=== PATIENT | male | born 1955 | race Caucasian/White ===

== ENCOUNTER 2020-04-16 05:50 | Outpatient (RCR) | payer BC ==
[~2020-04-16] VITALS: Ht 180.3 cm; Wt 89.3 kg
[~2020-04-16 05:50] MED LIST: ATOR20TA66 PO; CETI10TA21 PO; HYDR25TA4 PO; HYOS-19 SL; HYOS0.3710 PO; LOSA100T57 PO; NAPR-915 PO; NFNEB10T PO
== END 2020-04-16 15:08 | disposition home or self-care (01) ==
LOC: PREOP 05:50
PROVIDERS: ATTEND Internal Medicine
DX: Z01.818 Encounter for other preprocedural examination (principal); Z11.59 Encounter for screening for other viral diseases
CPT/HCPCS: 87635

== ENCOUNTER 2020-04-20 09:29 | Day surgery (SDC) | payer BC ==
--- NOTE | 2020-04-16 06:28 | HISTORY AND PHYSICAL ---
DATE OF SERVICE: COLONOSCOPY HISTORY AND PHYSICAL HISTORY OF PRESENT ILLNESS: The patient is a 65-year-old white male referred by Dr. Torres for screening colonoscopy. He does report a history of longstanding irritable bowel syndrome, diarrhea predominant. Six weeks ago, he did notice exacerbation of diarrhea with urgency. Previous to this, his usual habit was 3 to 4 stools a day, mostly in the morning, occasional bowel movement after lunch that were soft but formed. Since that time he is going 7 to 8 times a day and it has been very loose with more fluid. He denies any antibiotic exposure or change in medication. He was given a trial of Questran, but he does not feel that there has been any improvement over the past couple of weeks, taking it twice a day. He has no past history of constipation. He denies night sweats, chills or fever. There has been no travel history and he came with labs including negative Clostridium difficile, enteric pathogens as well as no evidence for ova or parasites. He had a normal CBC and chemistry panel was unremarkable except for slightly low globulin level at 1.8, lower limits of normal being 1.9. PAST MEDICAL HISTORY: One screening colonoscopy 11 years ago, reportedly showed diverticular disease per Dr. Sandoval but no evidence for neoplasia. No other abnormalities were noted. He has a history of hypertension and osteoarthritis, predominantly of the knees. He has history of reflux with no known history for Zaragoza's esophagus and denies any problems with dysphagia with no reflux as long as he takes 20 mg of omeprazole. He also has a history of seasonal allergies. PAST SURGICAL HISTORY: Noncontributory. FAMILY HISTORY: He is not aware of any family history for GI tract malignancy. Father of lung cancer at the age of 70 and had heart disease, was a heavy smoker. Mother is still living at the age of 92 with reported early dementia. 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 He has no past smoking history. Does report 2 to 3 beers per night. REVIEW OF SYSTEMS: CONSTITUTIONAL: Denies night sweats, chills, fever or change in weight. GASTROINTESTINAL: As noted in the HPI. CARDIOVASCULAR: Denies any history of coronary artery disease, chest pain, dyspnea on exertion, orthopnea, PND or pedal edema. PULMONARY: Denies any problems with cough or wheezing. PHYSICAL EXAMINATION: GENERAL: Reveals a white male, normal weight, in no acute distress. VITAL SIGNS: His weight was 196 pounds, blood pressure 132/72. HEENT: Unremarkable. Mallampati 2 oropharyngeal configuration. Sclerae nonicteric. CHEST: Clear to auscultation. CARDIOVASCULAR: Revealed a regular rate and rhythm without murmur, S3 or S4. ABDOMEN: Soft, supple without mass, organomegaly or tenderness. No bruits were appreciated. EXTREMITIES: Reveal no cyanosis, clubbing or edema. ASSESSMENT AND PLAN: The patient was set up for screening colonoscopy with diarrhea history. We will need to obtain rectal biopsy for microscopic colitis if even in the event that there are no endoscopic abnormalities noted. Considering likely increase sensitivity to air insufflation and colonic manipulation we will consult anesthesia for Diprivan administration as the safest option for this patient undergoing successful pancolonoscopy. I thank you for the referral of this pleasant gentleman. Job ID: [id number] DocumentID: [id number] Dictated Date: 04/11/2020 18:37:22 Circulation Representative Date: 04/11/2020 19:10:39 Dictated By: SALEEM HONG MD MTDD
[2020-04-20] VITALS (8 sets, daily range): BP systolic 79–140; BP diastolic 43–81
[~2020-04-20] VITALS: Ht 180 cm; Wt 89.3 kg
[2020-04-20] MEDS ORDERED: LIDOCAINE JELLY 2% 6 ML SYRINGE MM PRN (09:30)
[2020-04-20] MEDS ORDERED: D5 LR IV SOLUTION 1,000 ML IV STA (09:30)
[2020-04-20] MEDS ORDERED: D5 LR IV SOLUTION 1,000 ML IV ONE (09:34)
[2020-04-20] MEDS ORDERED: PROPOFOL INJECTION 0 ML IV ONE (09:52)
[2020-04-20] MEDS ORDERED: MIDAZOLAM 2 MG/2 ML (VERSED) VIAL ONE (09:52)
--- NOTE | 2020-04-20 10:02 | Pre-Op Note & Conscious Sedat ---
Pre-Operative Progress Note H&P Reviewed The H&P was reviewed, patient examined and no changes noted. Date H&P Reviewed: Apr 20, 2020 Time H&P Reviewed: 09:55 Conscious Sedation Pre-Proced ASA Score 2 For ASA 3 and 4: Consider anesthesia and medical clearance. Also, for patients with a history of failed moderate sedation consider anesthesia. Airway Lungs Heart ASA score ASA 1: a normal healthy patient ASA 2: a patient with a mild systemic disease (mid diabetes, controlled hypertension, obesity ASA 3: a patient with a severe systemic disease that limits activity (angina, COPD, prior Myocardial infarction) ASA 4: a patient with an incapacitating disease that is a constant threat to life (CHF, renal failure) ASA 5: a moribund patient not expected to survive 24 hrs. (ruptured aneurysm) ASA 6: a declared brain- patient whose organs are being harvested. For emergent operations, add the letter E after the classification Mallampati Classification Grade 2 Sedation Plan Analgesia, Amnesia, Plan communicated to team members, Discussed options with patient/fam, Discussed risks with patient/fam The patient is an appropriate candidate to undergo the planned procedure, sedation, and anesthesia. The patient immediately re-assessed prior to indication. SALEEM HONG MD Apr 20, 2020 10:02
[2020-04-20] MEDS ORDERED: LIDOCAINE JELLY 2% 6 ML SYRINGE ONE (10:16)
[2020-04-20] MEDS ORDERED: PROPOFOL INJECTION 50 ML IV ONE (10:32)
--- OUTSIDE RECORDS SUMMARY | 2020-04-20 10:49 | XMS REPORT ---
Author Author [employer] [facility] 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 Role Phone RAISSA CA Unavailable Unavailable KERRY RONNA Ashkan Unavailable RAISSA CA Unavailable GERBER Kerns Unavailable MERLE BARNETTBIE JO Unavailable RAISSA CA Unavailable PAULA WATTS Unavailable CHENTE PRATHER Unavailable RAISSA CA Unavailable RAISSA CA Unavailable RAISSA CA Unavailable MICHELLE NEWMAN Unavailable MICHELLE NEWMAN Unavailable MICHELLE NEWMAN Unavailable RAISSA CA Unavailable RAISSA CA Unavailable Unavailable Unavailable Unavailable SALEEM HONG MD Unavailable Unavailable Unavailable Unavailable Unavailable Unavailable Unavailable Unavailable Unavailable Unavailable Unavailable Unavailable Allergies The data below is from unstructured sourcesNo Known Allergies No Information No Information No Information No Information No Information No Information No Information No Information Medications Current Medications Medication Ingredient Drug Dose Dates Status Sig Sig Care Class(es) (Normalized) (Original) Provid er atorvastati atorvastati HMG-CoA 20 mg 05-24-20 Active no At orvastatin no n 20 mg n Reductase 18 information Calcium 20 na me oral tablet Translation Inhibitor mg Orally (3 s: [ Once a day 1 sources.) Atorvastati tablet 24h n Calcium 16 May, 2018 20 mg, 30 day(s) Atorvastati Active n Calcium 20 mg] clindamycin Clindamycin Lincosamide 300 mg 10-13-20 Active no Clindamycin no 300 mg oral Translation Antibacteri 18 information HCl 30 0 MG name capsule (1 s: [ al Orally 4 source.) Clindamycin times a day HCl 300 MG] 1 capsule 6h Oct, 10 day(s) Active no fish oil no Active no Fish Oil no information information information Active name (3 sources.) no magnesium no Active no Magnesium no information information information Active name (3 sources.) montelukast montelukast Leukotriene 10 mg 03-08-20 Active no Singulair 10 no 10 mg oral Translation Receptor 18 information MG Orally name tablet (4 s: [ Antagonist Once a day 1 sources.) Singulair tablet in 10 MG, the evening Singulair 24h Feb, 10 MG] 2017 30 day(s) Active sildenafil sildenafil Phosphodies 25 mg 05-21-20 Active no Viagra 25 MG no 25 mg oral Translation terase 5 18 information Orally Onc e name tablet (3 s: [ Viagra Inhibitor a day 1 sources.) 25 MG, tablet as Viagra 25 needed 24h MG] May, Active no zinc Copper Active no Zinc Active no information Absorption information name (3 Inhibitor sources.) Completed/Discontinued Medications Medication Ingredient Drug Dose Dates Status Sig Sig Care Class(es) (Normalized) (Original) Provid er benzonatate benzonatate Non-narcoti 100 mg 01-29-20 no no Tessalon no 100 mg oral Translation c 18 informat information Perles 100 name capsule (2 s: [ Antitussive ion mg Orally sources.) Tessalon Three times Perles 100 a day 1 mg] capsule as needed 8h Jan, Not-Taking 12 hr pseudoephed alpha-Adren 120 mg 01-29-20 no no Taylor afed 12 no pseudoePHED rine ergic 18 informat information Hour 120 MG name rine Translation Agonist ion Orally every hydrochlori s: [ 12 hrs 1 de 120 mg Sudafed 12 tablet as extended Hour 120 needed 12h release MG] Jan, oral tablet Not-Taking (2 sources.) Problems Problem Normalized Date Last Normalized Normalized Provider Yordan rojas Classification Problem(s) Recorded Problem Problem Sta tus Duration Residual At risk of Episodic Active MICHELLE Viveros y codes; heart disease 41117 [facility] unclassified Translations: [place] (4 sources.) [ At risk for [place] (42768) heart disease] 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 59099 [facility] disorders (7 dysfunction of [facility] sources.) Translations: [place] (70820) [ - 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49] Residual Family history Episodic Active MICHELLE dumont codes; of malignant [address] [place] [address] unclassified neoplasm of of [facility] (4 sources.) prostate [place] (08725) Translations: [ - Family history of prostate cancer Z80.42] Residual Family history Episodic Active MICHELLE dumont codes; of prostate [address] [place] [address] unclassified cancer of [facility] (4 sources.) Translations: [place] (08445) [ Family history of prostate cancer] Other male Impotence Chronic Active PAULA WATTS [address] [facility] genital Translations: [facility] Center disorders (11 [ Drug-induced of [facility] sources.) erectile [place] (33898) dysfunction, - 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, Drug-induced erectile dysfunction] Other Olecranon Episodic Active MICHELLE TRENT [facility] connective bursitis, left [id number] [place], [place] [address]e r tissue disease elbow of [facility] (4 sources.) Translations: [place] (28399) [ - Olecranon bursitis of left elbow M70.22] Residual Other Episodic Active MICHELLE TRENT [facility] codes; specified [address] [place] [address] Center unclassified personal risk of [facility] (4 sources.) factors, not [place] (16749) elsewhere classified Translations: [ - At risk for heart disease Z91.89] Other upper Seasonal Chronic Active RAISSA Cochran ty respiratory allergy [id number] [place] [address] Center disease (7 Translations: [place] sources.) [ Seasonal [place] (67908) allergies, Seasonal allergies] Other lower Wheezing Episodic Active RAISSA Cochran ty respiratory Translations: [address] Health Center disease (1 [ - Wheezes of [facility] source.) R06.2] [place] (10125) Procedures Procedure Normalized Procedure Procedure Result Performer Facility Date 09-29-2018 Aspiration&/injection no information no name [facility] ganglion cyst any [facility] locatj [place] ([address]) 05-21-2018 Comprehensive no information no name [facility] metabolic panel [facility] (14716) 10-13-2018 Cul bact xcpt urine no information no name [facility] blood[facility]stool aerobic [facility] (72269) 03-08-2018 Dexamethasone sodium no information no name Co [facility] phos [facility] (90870) 05-21-2018 Lipid panel no information no name [facility] (94426) 03-08-2018 Methylprednisolone 40 no information no name [facility] MG inj [facility] (75730) 03-08-2018 Therapeutic no information no name [facility] prophylactic/dx [facility] subq/im [place] ([address]) Immunizations Normalized Immunization Date Notes Care Provider Facili ty Immunization DEPO MEDROL 40 MG/ML 03-08-2018 - no information CHENTE Caceres [facility] Translations: [ DEPO 03-08-2018 [id number] [facility] MEDROL 40 [place] ([address]) DEXAMETHASONE 4MG/ML (PER 1 MG)] DEXAMETHASONE 4MG/ML 03-08-2018 no information CHENTE PRATHER [facility] (PER 1 MG) [id number] [facility] (42217) influenza, 09-02-2018 [place] [address] [facility] injectable, [facility] quadrivalent, [place] ([address]) preservative free influenza, 10-02-2017 no information no name Not Availab le injectable, (04713) quadrivalent, preservative free influenza, seasonal, 08-25-2019 no information no name Co [facility] injectable [facility] (18612) influenza, seasonal, 09-02-2018 no information RAISSA CA 6 [phone] [facility] injectable [facility] (42900) SINGLE IMMUNIZATION 09-02-2018 - no information RAISSA CA 6 2311 [facility] ADMIN Translations: 09-02-2018 [facility] t [ FLULAVAL QUAD [place] ([address]241) 0.5ML (6 MO ] Results Test Name Value Interpretation Reference Range Date Time Fa cility (Normalized) (Normalized) (Medline Reference) laboratory on 2020-04-16 Coronavirus Ab Negative (no code) 04-16-2020 PENDING LOC ATION Qn (S) 04:20-0400 [facility] (75467) laboratory on 2020-03-27 Albumin 4.5 g/dL (N) 3.4 - 5.4 g/dL [facility] [Mass/Vol] [facility] (92607) Albumin/Globulin 2.5 {ratio} (N) 1 - 2.5 {ratio} [facility] [place] [facility] [Mass ratio] [facility] (72217) ALP [Catalytic 86 U/L (N) 44 - 147 U/L [facility] activity/Vol] [facility] (44830) ALT [Catalytic 33 U/L (N) 4 - 40 U/L [facility] activity/Vol] [facility] (96706) AST [Catalytic 26 U/L (N) 10 - 34 U/L [facility] activity/Vol] [facility] (78170) Basophils (Bld) 0.033 10*3/uL (N) 0 - 0.3 10*3/uL [facility] [#/Vol] [facility] (25331) Basophils/100 0.5 % (N) 0.5 - 1 % [facility] WBC (Bld) [facility] (65265) Bilirubin 0.6 mg/dL (N) 0.1 - 1.2 mg/dL [facility] [Mass/Vol] [facility] (36468) Calcium 9.2 mg/dL (N) 8.5 - 10.2 mg/dL [facility] [Mass/Vol] [facility] (94688) Chloride 103 mmol/L (N) 95 - 106 mmol/L [facility] [Moles/Vol] [facility] (90257) CO2 [Moles/Vol] 30 mmol/L (N) 23 - 29 mmol/L [facility] [place] (41194) Creatinine 0.90 mg/dL (N) [facility] [Mass/Vol] [facility] (68526) CRP [Mass/Vol] 1.6 mg/L (N) 0 - 8 mg/L [facility] (90507) Eosinophils 0.137 10*3/uL (N) 0.05 - 0.5 [facility] alth (Bld) [#/Vol] 10*3/uL [facility] (59569) Eosinophils/100 2.1 % (N) 1 - 4 % [facility] WBC (Bld) [facility] (85270) Erythrocyte 12.3 % (N) 11.6 - 14.6 % [facility] e[facility] distribution [facility] (RBC) [facility] [Ratio] (54360) GFR/1.73 sq M 104 (N) 90 - 120 [facility] predicted among mL/min/{1.73_m2} mL/min/{1.73_m2} Center o f [facility] blacks MDRD [facility] (S/P/Bld) [Vol (00582) rate/Area] GFR/1.73 sq 90 (N) 90 - 120 [facility] th M.predicted MDRD mL/min/{1.73_m2} mL/min/{1.73_m2} [facility] (S/P/Bld) [Vol [facility] rate/Area] (68611) Globulin (S) 1.8 g/dL (L) 2 - 3.5 g/dL [facility] [Mass/Vol] [facility] (49578) Glucose 103 mg/dL (N) 60 - 125 mg/dL [facility] [Mass/Vol] [facility] (38780) Hematocrit (Bld) 40.5 % (N) 36.1 - 50.3 % [facility] [Volume [facility] (92450) Hemoglobin (Bld) 13.6 g/dL (N) 12.1 - 17.2 g/dL [facility] [Mass/Vol] [facility] (53717) Lymphocytes 1.443 10*3/uL (N) 0.9 - 2.9 [facility] (Bld) [#/Vol] 10*3/uL [facility] (23525) Lymphocytes/100 22.2 % (N) 20 - 40 % [facility] WBC (Bld) [facility] (88996) MCH (RBC) 30.9 pg (N) 27 - 31 pg [facility] [Entitic mass] [facility] (90520) MCHC (RBC) 33.6 g/dL (N) 32 - 36 g/dL [facility] [Mass/Vol] [facility] (59166) MCV (RBC) 92.0 fL (N) 80 - 100 fL [facility] Hea lth [Entitic vol] [facility] (64420) Monocytes (Bld) 0.468 10*3/uL (N) 0.3 - 0.9 [facility] [#/Vol] 10*3/uL [facility] (94792) Monocytes/100 7.2 % (N) 2 - 8 % [facility] WBC (Bld) [facility] (82794) Neutrophils 4.42 10*3/uL (N) 1.7 - 7 10*3/uL [facility] (Bld) [#/Vol] [facility] (17930) Neutrophils/100 68 % (N) 40 - 60 % [facility] WBC (Bld) [facility] (19658) Platelet mean 9.4 fL (N) 7.2 - 11.7 fL [facility] volume (Bld) [facility] [Entitic vol] [facility] (93172) Platelets (Bld) 265 10*3/uL (N) 150 - 450 [facility] [#/Vol] 10*3/uL [facility] (97869) Potassium 3.9 mmol/L (N) 3.7 - 5.2 mmol/L [facility] [Moles/Vol] [facility] (57794) Protein 6.3 g/dL (N) 6.4 - 8.3 g/dL [facility] [Mass/Vol] [facility] (43589) RBC (Bld) 4.40 10*6/uL (N) 4.2 - 6.1 [facility] [#/Vol] 10*6/uL [facility] (81178) Sodium 139 mmol/L (N) 135 - 145 mmol/L [facility] [Moles/Vol] [facility] (73577) Urea nitrogen 21 mg/dL (N) 7 - 20 mg/dL [facility] [Mass/Vol] [facility] (51255) Urea NOT APPLICABLE (no code) [facility] nitrogen/Creatin [facility] [Mass ratio] [facility] (10795) WBC (Bld) 6.5 10*3/uL (N) 3.5 - 10.5 [facility] [#/Vol] 10*3/uL [facility] (78112) laboratory on 2020-03-19 C. difficile SEE NOTE (no code) [facility] glutamate [facility] (Stl) (85747) G. lamblia Ag IA SEE NOTE (no code) [facility] lt Ql (Stl) [facility] (48938) Ova and SEE NOTE (no code) [facility] parasites [facility] Trichrome stain (41925) Nom (Stl) Salmonella and SEE NOTE (no code) [facility] Shigella sp [facility] specific cx Nom (85200) (Stl) laboratory on 2019-08-25 Albumin 4.5 g/dL (N) 3.4 - 5.4 g/dL [facility] [Mass/Vol] [facility] (60115) Albumin/Globulin 2.3 {ratio} (N) 1 - 2.5 {ratio} [facility] [Mass ratio] [facility] (15058) ALP [Catalytic 79 U/L (N) 44 - 147 U/L [facility] activity/Vol] [facility] (09144) ALT [Catalytic 25 U/L (N) 4 - 40 U/L [facility] ealth activity/Vol] [facility] (94794) AST [Catalytic 24 U/L (N) 10 - 34 U/L [facility] activity/Vol] [facility] (49096) Bilirubin 0.7 mg/dL (N) 0.1 - 1.2 mg/dL [facility] [Mass/Vol] [facility] (88113) Calcium 9.4 mg/dL (N) 8.5 - 10.2 mg/dL [facility] [Mass/Vol] [facility] (63764) Chloride 97 mmol/L (L) 95 - 106 mmol/L [facility] [Moles/Vol] [facility] (24570) Cholesterol 119 mg/dL (N) 180 - 200 mg/dL [facility] [Mass/Vol] [facility] (54820) Cholesterol in 65 mg/dL (N) [facility] HDL [Mass/Vol] [facility] (69440) Cholesterol in 40 mg/dL (N) 0 - 100 mg/dL [facility] LDL [Mass/Vol] [facility] (35907) Cholesterol non 54 mg/dL (N) [facility] HDL [Mass/Vol] [facility] (25099) Cholesterol.tota 1.8 {ratio} (N) [facility] l/Cholesterol in [facility] HDL [Mass ratio] [facility] (96845) CO2 [Moles/Vol] 30 mmol/L (N) 23 - 29 mmol/L [facility] (34014) Creatinine 0.75 mg/dL (N) [facility] [Mass/Vol] [facility] (07679) GFR/1.73 sq M 112 (N) 90 - 120 [facility] predicted among mL/min/{1.73_m2} mL/min/{1.73_m2} Center o f [facility] blacks MDRD [facility] (S/P/Bld) [Vol (48448) rate/Area] GFR/1.73 sq 97 (N) 90 - 120 [facility] M.predicted MDRD mL/min/{1.73_m2} mL/min/{1.73_m2} [facility] (S/P/Bld) [Vol [facility] rate/Area] (50323) Globulin (S) 2.0 g/dL (N) 2 - 3.5 g/dL [facility] ealt [Mass/Vol] [facility] (80673) Glucose 94 mg/dL (N) 60 - 125 mg/dL [facility] [Mass/Vol] [facility] (70969) Potassium 4.4 mmol/L (N) 3.7 - 5.2 mmol/L [facility] [Moles/Vol] [facility] (77644) Protein 6.5 g/dL (N) 6.4 - 8.3 g/dL [facility] [Mass/Vol] [facility] (91822) Sodium 137 mmol/L (N) 135 - 145 mmol/L [facility] [Moles/Vol] [facility] (78864) Triglyceride 62 mg/dL (N) 0 - 150 mg/dL [facility] [Mass/Vol] [facility] (96828) Urea nitrogen 9 mg/dL (N) 7 - 20 mg/dL [facility] [Mass/Vol] [facility] (62533) Urea NOT APPLICABLE (no code) [facility] Healt nitrogen/Creatin [facility] [Mass ratio] [facility] (98140) imm/path on 2018-10-13 Bacteria SEE NOTE (A) [facility] identified [facility] spec) (32240) other on 2018-05-21 Albumin/Globulin 1.9 (N) no informatio n mass ratio Cholesterol in 90 (N) no information LDL mass conc Cholesterol non 106 (N) no information HDL mass conc Cholesterol.tota 2.6 (N) no informatio n l/Cholesterol in HDL mass ratio Globulin 2.4 (N) no information Calculated mass conc (S) metabolic panel on 2018-05-21 Albumin mass 4.6 g/dL (N) 3.4 - 5.4 g/dL no inform ation conc ALP enzyme 75 U/L (N) 44 - 147 U/L no informati on act/vol ALT enzyme 24 U/L (N) 4 - 40 U/L no information act/vol AST enzyme 23 U/L (N) 10 - 34 U/L no informatio n act/vol Bilirubin mass 0.6 mg/dL (N) 0.1 - 1.2 mg/dL no inf ormation conc Calcium mass 9.8 mg/dL (N) 8.5 - 10.2 mg/dL no info rmation conc Chloride molar 100 mmol/L (N) 95 - 106 mmol/L no inf ormation conc CO2 molar conc 31 mmol/L (N) 23 - 29 mmol/L no info rmation Creatinine mass 0.76 mg/dL (N) no information conc GFR/1.73 sq M 113 (N) 90 - 120 no informati on predicted among mL/min/{1.73_m2} mL/min/{1.73_m2} blacks MDRD vol rate/area (S/P/Bld) GFR/1.73 sq 97 (N) 90 - 120 no information M.predicted MDRD mL/min/{1.73_m2} mL/min/{1.73_m2} vol rate/area Glucose mass 100 mg/dL (H) 60 - 125 mg/dL no inform ation conc Potassium molar 4.4 mmol/L (N) 3.7 - 5.2 mmol/L no i nformation conc Protein mass 7.0 g/dL (N) 6.4 - 8.3 g/dL no inform ation conc Sodium molar 137 mmol/L (N) 135 - 145 mmol/L no info rmation conc Urea nitrogen 12 mg/dL (N) 7 - 20 mg/dL no informa tion mass conc Urea NOT APPLICABLE (no code) no information nitrogen/Creatin ine mass ratio cardiac on 2018-05-21 Cholesterol in 66 mg/dL (N) no information HDL mass conc Cholesterol mass 172 mg/dL (N) 180 - 200 mg/dL no i nformation conc Triglyceride 70 mg/dL (N) 0 - 150 mg/dL no informa tion mass conc other on 2017-05-22 Albumin/Globulin 2.0 {ratio} (no code) 1 - 2.5 {ratio} 7 Not Available [Mass ratio] 09:24-0400 (06820) Cholesterol in 14 mg/dL (no code) 05-22-2017 Not Availab le VLDL [Mass/Vol] 09:240400 (11688) Globulin (S) 2.2 g/dL (no code) 2 - 3.5 g/dL 05-22-2017 Not Av ailable [Mass/Vol] 09: (85064) metabolic panel on 2017-05-22 Albumin 4.3 g/dL (no code) 3.4 - 5.4 g/dL 05-22-2017 Not [place] ilable [Mass/Vol] 09: (08965) ALP [Catalytic 73 U/L (no code) 44 - 147 U/L 05-22-2017 Not Available activity/Vol] 09: (74804) ALT [Catalytic 20 U/L (no code) 4 - 40 U/L 05-22-2017 Not Av ailable activity/Vol] 09: (34446) AST [Catalytic 25 U/L (no code) 10 - 34 U/L 05-22-2017 Not A vailable activity/Vol] 09: (24515) Bilirubin 0.5 mg/dL (no code) 0.1 - 1.2 mg/dL 05-22-2017 Not Av ailable [Mass/Vol] 09: (40398) Calcium 9.5 mg/dL (no code) 8.5 - 10.2 mg/dL 05-22-2017 Not A vailable [Mass/Vol] 09: (47379) Chloride 97 mmol/L (no code) 95 - 106 mmol/L 05-22-2017 Not Av ailable [Moles/Vol] 09: (60286) CO2 [Moles/Vol] 24 mmol/L (no code) 23 - 29 mmol/L 05-22-2017 N ot Available 09: (61904) Creatinine 0.80 mg/dL (no code) 05-22-2017 Not Available [Mass/Vol] 09: (59932) GFR/1.73 sq M 111 (no code) 90 - 120 05-22-2017 Not Avai lable predicted among mL/min/{1.73_m2} mL/min/{1.73_m2} 09: (20875) blacks MDRD (S/P/Bld) [Vol rate/Area] GFR/1.73 sq M 96 (no code) 90 - 120 07-14-2017 Not Avai lable predicted among mL/min/{1.73_m2} mL/min/{1.73_m2} 09: (65176) non-blacks MDRD (S/P/Bld) [Vol rate/Area] Glucose 104 mg/dL (H) 60 - 125 mg/dL 05-22-2017 Not [place] ilable [Mass/Vol] 09: (42578) Potassium 4.3 mmol/L (no code) 3.7 - 5.2 mmol/L 05-22-2017 Not Available [Moles/Vol] 09: (39270) Protein 6.5 g/dL (no code) 6.4 - 8.3 g/dL 05-22-2017 Not [place] ilable [Mass/Vol] 09: (21102) Sodium 140 mmol/L (no code) 135 - 145 mmol/L 05-22-2017 Not Available [Moles/Vol] 09: (10444) Urea nitrogen 10 mg/dL (no code) 7 - 20 mg/dL 05-22-2017 Not A vailable [Mass/Vol] 09: (18864) Urea 13 mg/mg (no code) 6 - 22 mg/mg 05-22-2017 Not Avail able nitrogen/Creatin 09: (52208) ine [Mass ratio] imm/path on 2017-05-22 Prostate 1.1 ng/mL (no code) 0 - 4 ng/mL 05-22-2017 Not Availa ble specific Ag 10:34-0400 (84270) [Mass/Vol] cardiac on 2017-05-22 Cholesterol 169 mg/dL (no code) 180 - 200 mg/dL 05-22-2017 Not Available [Mass/Vol] 09: (45121) Cholesterol in 67 mg/dL (no code) 05-22-2017 Not Availab le HDL [Mass/Vol] 09: (68839) Cholesterol in 88 mg/dL (no code) 0 - 100 mg/dL 05-22-2017 Not Available LDL [Mass/Vol] 09: (40991) Triglyceride 68 mg/dL (no code) 0 - 150 mg/dL 05-22-2017 Not A vailable [Mass/Vol] 09:24-0400 (88942) Vital Signs Vital Sign Value Interpretation Reference Date Time Care Prov ider Facility (Normalized) (Normalized) Range BMI (Body Mass 28.03 kg/m2 (no code) 15 - 25 kg/m2 10-13-2018 W TAMSIMRANIta NEWMAN Community Index) 09:20-0500 12406 [facility] (38225) BMI (Body Mass 27.89 kg/m2 (no code) 15 - 25 kg/m2 09-29-2018 W KAYCEE TRENT Community Index) 17:40-0500 87806 [facility] (71157) BMI (Body Mass 27.78 kg/m2 (no code) 15 - 25 kg/m2 05-21-2018 Kush [place] Community Index) 10:00-0400 92104 [facility] (74641) BMI (Body Mass 26.69 kg/m2 (no code) 15 - 25 kg/m2 03-08-2018 HOSEA HAMILTON Community Index) 12:200400 [facility] [address] [facility] (90127) BMI (Body Mass 27.33 kg/m2 (no code) 15 - 25 kg/m2 01-28-2018 A JASMYN CONNERT 78835 Community Index) 09:100400 [facility] (09811) Body 98.3 [degF] (no code) 97.8 - 99.0 10-13-2018 MICHELLE CAMERON Community Temperature [degF] 09:200500 81106 [facility] (86790) Body 98 [degF] (no code) 97.8 - 99.0 09-29-2018 MICHELLE NEWMAN [facility] Temperature [degF] 17:40-0500 90447 [facility] (14448) Body 98.6 [degF] (no code) 97.8 - 99.0 05-21-2018 RAISSA GIMENEZ Community Temperature [degF] 10:00-0400 99593 [facility] (72229) Body 97.7 [degF] (no code) 97.8 - 99.0 03-08-2018 CHENTE Community Temperature [degF] 12:200 [facility] [address] [facility] (97483) Body 98.5 [degF] (no code) 97.8 - 99.0 01-28-2018 PAULA WATTS 6 6749 [facility] Temperature [degF] 09:100 [facility] (44885) Height 180.34 cm (no code) cm 10-13-2018 MICHELLE NEWMAN [facility] 09:200500 [address] [place] [address] (76139) Height 180.34 cm (no code) cm 09-29-2018 [facility] 17:40-[address] [place] [address] (80648) Height 180.34 cm (no code) cm 05-21-2018 [facility]:000400 [address] [place] [address] (00192) Height 180.34 cm (no code) cm 03-08-2018 CHENTE Ruvalcaba nitmeng 12:20 [place] [id number] (55736) Height 180.34 cm (no code) cm 01-28-2018 PAULA WATTS 82174 [facility] 09: [facility] (94657) Pulse Oximetry 0 % (no code) 95 - 100 % 10-13-2018 [facility] 09:20-[address] [place] [address] ([id number]) Weight 91.17 kg (no code) kg 10-13-2018 MICHELLE NEWMAN Fl mmunity 09:200500 [address] [place] [address] ([id number]) Weight 90.72 kg (no code) kg 09-29-2018 MICHELLE NEWMAN Fl mmunity 17:40-[address] [place] [address] ([id number]) Weight 90.36 kg (no code) kg 05-21-2018 RAISSA CA ommunity 10:000400 [address] [place] [address] ([id number]) Weight 86.82 kg (no code) kg 03-08-2018 CHENTE Rodrigez ity 12:[address] ([id number]) Weight 88.91 kg (no code) kg 01-28-2018 PAULA WATTS [id number] [facility] 09:10-0400 [facility] ([id number]) Interventions No Information Plan of Treatment Normalized Care Care Detail Care Activity Date Care Provider F acility Activity no information no information no information MICHELLE NEWMAN [address] [facility] ([id number]) Goals No Information Social History No Information Functional Status The data below is from unstructured sourcesNo functional status results. Mental Status No Information Encounters Encounter Normalized Encounter Encounter Diagnosis Care Provi florentino Organization Date Type 10-13-2018 (ACUTE) Acute Visit Effusion, left elbow MICHELLE CAMERON (no [facility] phone) (no phone) 02-08-2019 ([facility]) Chronic Health Essential (primary) RAISSA GIMENEZ (no [facility] Maintenance hypertension phone) (no phone) 05-21-2018 ([facility]) Chronic Health Essential (primary) RAISSA GIMENEZ (no [facility] Maintenance hypertension phone) (no phone) 09-02-2018 (imm/inj) Encounter for RAISSA CA (no [facility] Immunization/injection immunization phone) (no travis ne) 09-29-2018 (SD) Same Day Olecranon bursitis, MICHELLE NEWMAN (no [facility] left elbow phone) (no phone) 10-31-2018 (WALK-IN) Walk-In Care Acute nasopharyngitis SEBAS BARNETT (no [facility] [common cold] phone) CARE (no phone) 05-24-2018 [facility] Other specified RAISSA CA (no [facility] personal risk factors, phone) (no phone) not elsewhere classified 05-21-2018 Patient encounter no information no name no or ganization name 03-08-2018 Patient encounter no information no name no or ganization name 01-28-2018 Patient encounter no information no name no or ganization name Patient encounter no information no name no organizat ion name 04-16-2020 Patient encounter no information SALEEM HONG MD (no [facility] - procedure phone) [facility] 04-16-2020 (no phone) 04-13-2020 Patient encounter no information SALEEM HONG MD (no [facility] procedure phone) [facility] (no phone) 04-12-2020 Patient encounter no information SALEEM HONG MD (no [facility] procedure phone) [facility] (no phone) 03-27-2020 Patient encounter no information (no phone) [facility] (no phone) 03-19-2020 Patient encounter no information (no phone) [facility] (no phone) 03-18-2020 Patient encounter no information RAISSA CA (n o [facility] procedure phone) [facility] (no phone) 08-25-2019 Patient encounter no information no name no or ganization name procedure 02-08-2019 Patient encounter no information no name no or ganization name procedure 10-13-2018 Patient encounter no information no name no or ganization name procedure 09-29-2018 Patient encounter no information no name no or ganization name procedure 01-13-2019 Telephone encounter no information RAISSA CA (n o [facility] phone) (no phone) 01-06-2019 Telephone encounter no information RAISSA CA (n o [facility] phone) (no phone) 10-15-2018 Telephone encounter no information MICHELLE NEWMAN (no [facility] phone) (no phone) Medical Equipment No Information Payers No Information Summary Purpose eClinicalWorks Submission Advance Directives Directive Response Recor ded Date/Time Advance Directives No 9:47pm Resuscitation Status Full Code 02/23/15 9:47pm Discharge Instructions No hospital discharge instructions. Additional Source Comments This clinical document has been generated using [employer] software that has been certified by the Office of the National Coordinator for Health Information Technology (ONC 15.99.04.3023.Diam.31.00.0.255579) and the National Committee for Children'S Choir Director (NCQA, as an eMeasure certified technology). FOR RECORDS PERTAINING TO PATIENTS WHO ARE OR HAVE BEEN ENROLLED IN A CHEMICAL D EPENDENCY/SUBSTANCE ABUSE PROGRAM, SOME INFORMATION MAY BE OMITTED. This clinica l summary was aggregated from multiple sources. Caution should be exercised in using it in the provision of clinical care. This summary normalizes information from multiple sources, and as a consequence, information in this document may ma terially change the coding, format and clinical context of patient data. In niki tion, data may be omitted in some cases. CLINICAL DECISIONS SHOULD BE BASED ON T HE PRIMARY CLINICAL RECORDS. [employer] provides no warranty or guara ntee of the accuracy or completeness of information in this document.The followi information is based on time limited clinical information UNRECOGNIZED CONTENT PROVIDED BELOW FOR UNRECOGNIZED SECTION MEDICAL (GENERAL) HISTORY Type Description Date Medical History Essential hypertension Medical History Irritable bowel synd afua with diarrhea Medical History Unspecified osteoart hritis, unspecified site Medical History Chronic sinusitis, u nspecified Surgical History tonsillectomy Surgical History umbilical hernia repair Surgical History achilles tendon rep air left foot Hospitalization History surgeries only Type Description Date Medical History Essential hypertension Medical History Irritable bowel synd afua with diarrhea Medical History Unspecified osteoart hritis, unspecified site Medical History Chronic sinusitis, u nspecified Surgical History tonsillectomy Surgical History umbilical hernia repair Surgical History achilles tendon rep air left foot Surgical History bursectomy left elbow Hospitalization History surgeries only UNRECOGNIZED CONTENT PROVIDED BELOW FOR UNRECOGNIZED SECTION REASON FOR VISIT Blood Pressure and swelling on the left knee, pinched nerve in the neck and itch y spot on the back-[place] MAFlu shot --Miles Hernández c/o -Mayito Nelson c /o-MONTRELL ch, pt states he was here a couple of weeks ago for his left elbow a nd his elbow drained but it has came backrefill request
--- OUTSIDE RECORDS SUMMARY | 2020-04-20 10:49 | XMS REPORT ---
Author Author Dangelo CA Organization [facility] Address [address] [place] [address] Care Team Providers Care Repairer Cylinder Heads Name Role Phone RAISSA CA Unavailable PROBLEMS Type Condition ICD9-CM Code [id number] Code Onset Dates Condition S tatus SNOMED Code Problem Essential hypertension I10 Active 47641762 Problem Arthritis M19.90 Active 4906100 Problem Irritable bowel syndrome with diarrhea K58.0 Active 695734979 Problem At risk for heart disease Z91.89 Acti ve 378025646 Problem Seasonal allergies J30.2 Active 4 67032777 Problem Family history of prostate cancer Z80.42 Active 603468672 Problem Gastroesophageal reflux disease with esophagitis K 21.0 Active 881859721 Problem 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 Active 563096077 Problem Family history of heart disease Z82.49 Active 178053774 ALLERGIES Substance Reaction Event Type Date Status Sulfamethoxazole-Trimethoprim Unknown Drug Allergy May, 201 8 Active ENCOUNTERS Encounter Location Date Diagnosis [facility] [address] [place] [id number] [place] [phone] May, At risk for heart disease Z9 1.89 [facility] [address] [place] [id number] [address] [place] [phone] May, Essential hypertension I10 ; Family history of heart disease Z82.49 ; 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 ; Irritable bowel syndrome with diarrhea K58.0 and Seasonal allergies J30.2 [facility] [address] [facility] [id number] [address] [place] [phone] Feb, Seasonal allergic rhinitis, unspecified trigger J30.2 [facility] [address] [facility] [id number] [address] [place] [phone] Jan, Viral upper respiratory trac t infection J06.9 [place] [address] [address] 12 Oct, 2017 Essential hypertension I10 a nd Gastroesophageal reflux disease with esophagitis K21.0 [facility] [place] [address] [address] 04 Oct, 2017 Bronchitis J40 and Subacute maxillary sinusitis J01.00 [facility] [address] [address] Sep, Acute upper respiratory infe ction, unspecified J06.9 ; Encounter for immunization Z23 and Other viral agents as the cause of diseases classified elsewhere B97.89 [facility] [place] [address] [address] 05 Jul, 2017 Chronic seasonal allergic rh initis due to other allergen J30.[address] [address] Jun, Essential hypertension I10 [facility] [place] [address] [address] May, Acute upper respiratory infe ction, unspecified J06.[address] [address] May, Essential hypertension I10 ; Arthritis M19.90 ; Family history of prostate cancer Z80.42 and Family history of heart disease Z82.[address] [address] Dec, Essential hypertension I10 a nd Gastroesophageal reflux disease with esophagitis K21.0 [facility] [place] [address] [address] Oct, Other specified bacterial ag ents as the cause of diseases classified elsewhere B96.89 and Acute sinusitis, unspecified J01.90 [place] [id number] [place] [phone] Oct, [address] [place] [phone] Oct, [facility] [address] [facility] [id number] [address] [place] [phone] Sep, Essential hypertension I10 [facility] [address] [facility] [id number] [address] [place] [phone] Aug, Secondary infection of skin L08.89 and Essential hypertension I10 [facility] [address] [facility] [id number] [address] [place] [phone] Aug, Essential hypertension I10 a nd Encounter for immunization Z23 [place] [address] [address] [facility] [id number] [address] [place] [phone] Aug, [facility] [address] [facility] [id number] [address] [place] [phone] Jul, [facility] [address] [facility] [id number] [address] [place] [phone] Jun, Essential hypertension I10 a nd Irritable bowel syndrome with diarrhea K58.0 IMMUNIZATIONS No Known Immunizations SOCIAL HISTORY Never Assessed REASON FOR VISIT Blood Pressure and swelling on the left knee, pinched nerve in the neck and itch y spot on the back-[place] KIRSTY PLAN OF CARE Activity Details Follow Up 6 Months Reason: VITAL SIGNS Height 71 in 2018-05-21 Weight 199.2 lbs 2018-05-21 Temperature 98.6 degrees Fahrenheit 2018-05-21 Heart Rate 78 bpm 2018-05-21 Respiratory Rate 18 2018-05-21 BMI 27.78 kg/m2 2018-05-21 Blood pressure systolic 142 mmHg 2018-05-21 Blood pressure diastolic 78 mmHg 2018-05-21 MEDICATIONS Medication Instructions Dosage Frequency Start Date End Date Duration S tatus Flonase Allergy Relief 50 MCG/ACT Nasally Once a day 1 spray in each nostril 24h Active Viagra 25 MG Orally Once a day 1 tablet as needed 24h May, Active Hydrochlorothiazide 25MG Orally Once a day 1 tablet 24h 90 Active Hyoscyamine Sulfate 0.125 MG Sublingual every 4 hrs 1 tablet under the tongue and allow to dissolve before meals as needed 4h Active Singulair 10 MG Orally Once a day 1 tablet in the evening 24h Feb, 30 day(s) Active Bystolic 10MG TAKE ONE TABLET BY MOUTH ONCE DAILY Active Claritin 10 MG Orally Once a day 1 tablet 24h Active Cozaar 100MG Orally Once a day 1 tablet 24h 90 Active Naproxen 500MG Orally every 12 hrs 1 tablet as needed 12h 90 Active Zinc Active Magnesium Active Hyoscyamine Sulfate ER 0.375MG Orally every 12 hrs 1 tablet 12h 90 Active Omeprazole 20 mg Orally Once a day 1 capsule 24h Active Fish Oil Active ProAir HFA 108 (90 Base) MCG/ACT Inhalation every 6 hrs 2 puffs as needed 6h Oct, 10 days Unknown RESULTS No Results PROCEDURES Procedure Date Ordered Result Body Site COMPREHEN METABOLIC PANEL May 21, 2018 LIPID PANEL May 21, 2018 INSTRUCTIONS MEDICATIONS ADMINISTERED No Known Medications MEDICAL (GENERAL) HISTORY Type Description Date Medical History Essential hypertension Medical History Irritable bowel syndrome with diarrhea Medical History Unspecified osteoarthritis, unspecified site Medical History Chronic sinusitis, unspecified Surgical History tonsillectomy Surgical History umbilical hernia repair Surgical History achilles tendon repair left foot Hospitalization History surgeries only
--- OUTSIDE RECORDS SUMMARY | 2020-04-20 10:50 | XMS REPORT ---
Author Dangelo Mckenzie Organization eClinicalWorks Address Unknown Phone Unavailable Care Team Providers Care Sugar Reprocess Operator Head Name Role Phone RAISSA CA CP Unavailable Allergies, Adverse Reactions, Alerts Substance Reaction Event Type Sulfamethoxazole-Trimethoprim Info Not Available Drug Aller gy Problems Problem Type Condition Code Onset Dates Condition Statu s Problem Essential hypertension I10 Activ e Problem Irritable bowel syndrome with diarrhea K58.0 Active Problem Arthritis M19.90 Active Assessment Essential hypertension I10 Activ e Assessment Encounter for immunization Z23 A ctive Medications Medication Code System Code Instructions Start Date End Date Status Dosage Hyoscyamine Sulfate [facility] [address]-80 0.125 MG Sublingual every 4 hr s 1 tablet under the tongue and allow to dissolve before meals as needed Cozaar [facility] [address]-98 100 MG Orally Once a day Jul 05, 2016 1 tablet Flonase Allergy Relief [facility] [address]-73 50 MCG/ACT Nasally Once a d ay 1 spray in each nostril Metoprolol Succinate ER [facility] [address]-12 50 MG Orally Once a day 1 tablet Hyoscyamine Sulfate CR [facility] [address]-20 0.375 MG Orally every 12 hr s 1 tablet Naproxen [facility] [address]-59 500 MG Orally every 12 hrs 1 tablet as needed Hydrochlorothiazide [facility] [address]-70 25 MG Orally Once a day Aug 1 tablet Omeprazole [facility] [address]-11 20 mg Orally Once a day 1 capsule Procedures Procedure Coding System Code Date Office Visit, Est Pt., Level 2 CPT-4 20896 O 2015 FLUARIX QUAD P-FREE 3 AND UP .50 2015 CPT-4 87219 Aug 15, 2016 LIPID PANEL CPT-4 89809 Aug 15, 2016 VENIPUNCT, ROUTINE* CPT-4 34315 Aug 15, 2016 SINGLE IMMUNIZATION ADMIN CPT-4 39924 Aug Vital Signs Date/Time: Aug 15, 2016 Cardiac Monitoring Heart Rate 68 bpm Weight 200.7 lbs Height 71 in BMI 27.99 Index Blood Pressure Diastolic 90 mmHg Blood Pressure Systolic 154 mmHg Results Name Result Date Reference Range Unit Abnormali ty Flag ROUTINE VENIPUNCTURE LIPID PANEL ----VLDL Cholesterol Richar 13 23601108 5-40 mg/dL ----LDL Cholesterol Calc 93 96468736 0-99 mg/dL ----Triglycerides 64 92005722 0-149 mg/dL ----HDL Cholesterol 64 04065445 >39 mg/dL ----Cholesterol, Total 170 65181888 100-199 mg/dL Immunizations Vaccine Administration Date FLUZONE QUAD 3 AND UP 0.50 2015Aug 15, 2016 Summary Purpose eClinicalWorks Submission
--- OUTSIDE RECORDS SUMMARY | 2020-04-20 10:50 | XMS REPORT ---
Author Author Dangelo WATTS [facility] [address] Address [address] [place] [address] Care Team Providers Care Reporting Analyst Name Role Phone WATTSPAULA Unavailable PROBLEMS Type Condition ICD9-CM Code MHR32-YR Code Onset Dates Condition S tatus SNOMED Code Problem Essential hypertension I10 Active 36197405 Problem Arthritis M19.90 Active 9436322 Problem Irritable bowel syndrome with diarrhea K58.0 Active 790206385 Problem At risk for heart disease Z91.89 Acti ve 446566942 Problem Seasonal allergies J30.2 Active 4 06443068 Problem Family history of prostate cancer Z80.42 Active 332150587 Problem Gastroesophageal reflux disease with esophagitis K 21.0 Active 507073305 Problem 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 Active 339923191 Problem Family history of heart disease Z82.49 Active 082278598 ALLERGIES Substance Reaction Event Type Date Status Sulfamethoxazole-Trimethoprim Unknown Drug Allergy Jan, 201 8 Active ENCOUNTERS Encounter Location Date Diagnosis [place] [address] [place] [id number] [place] [phone] May, At risk for heart disease Z9 1.89 [place] [address] [address] [place] [id number] [address] [place] [address] May, Essential hypertension I10 ; Family history of heart disease Z82.49 ; 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 ; Irritable bowel syndrome with diarrhea K58.0 and Seasonal allergies J30.2 [facility] [address] [place] [id number] [place] [phone] Feb, Seasonal allergic rhinitis, unspecified trigger J30.[address] [facility] [address] [place] [id number] [place] [phone] Jan, Viral upper respiratory trac t infection J06.9 [place] [address] [address] 12 Oct, 2017 Essential hypertension I10 a nd Gastroesophageal reflux disease with esophagitis K21.0 [facility] [place] [address] [address] Oct, Bronchitis J40 and Subacute maxillary sinusitis J01.00 [facility] [place] [address] [address] Sep, Acute upper respiratory infe ction, unspecified J06.9 ; Encounter for immunization Z23 and Other viral agents as the cause of diseases classified elsewhere B97.89 [facility] [place] [address] [address] 05 Jul, 2017 Chronic seasonal allergic rh initis due to other allergen J30.[address] [address] Jun, Essential hypertension I10 [facility] [place] [address] [address] May, Acute upper respiratory infe ction, unspecified J06.[address] [address] May, Essential hypertension I10 ; Arthritis M19.90 ; Family history of prostate cancer Z80.42 and Family history of heart disease Z82.49 [place] [address] [address] Dec, Essential hypertension I10 a nd Gastroesophageal reflux disease with esophagitis K21.0 [facility] [place] [address] [address] Oct, Other specified bacterial ag ents as the cause of diseases classified elsewhere B96.89 and Acute sinusitis, unspecified J01.[address] [address] Oct, [place] [address] [address] [place] [address] [place] [address] Oct, [facility] [address] [facility] [id number] [address] [place] [address] Sep, Essential hypertension I10 [facility] [address] [facility] [id number] [address] [place] [address] Aug, Secondary infection of skin L08.89 and Essential hypertension I10 [facility] [address] [facility] [id number] [address] [place] [phone] Aug, Essential hypertension I10 a nd Encounter for immunization Z23 [facility] [address] [facility] [id number] [address] [place] [phone] Aug, [facility] [address] [facility] [id number] [address] [place] [phone] Jul, [facility] [address] [facility] [id number] [address] [place] [phone] Jun, Essential hypertension I10 a nd Irritable bowel syndrome with diarrhea K58.0 IMMUNIZATIONS No Known Immunizations SOCIAL HISTORY Never Assessed REASON FOR VISIT chest congestion, cough started Sun night JStrasserRN, Also c/o of a little bit of diarrhea PLAN OF CARE Activity Details Follow Up prn Reason: VITAL SIGNS Height 71 in 2018-01-28 Weight 196 lbs 2018-01-28 Temperature 98.5 degrees Fahrenheit 2018-01-28 Heart Rate 62 bpm 2018-01-28 Respiratory Rate 20 2018-01-28 BMI 27.33 kg/m2 2018-01-28 Blood pressure systolic 142 mmHg 2018-01-28 Blood pressure diastolic 74 mmHg 2018-01-28 MEDICATIONS Medication Instructions Dosage Frequency Start Date End Date Duration S tatus Hyoscyamine Sulfate 0.125 MG Sublingual every 4 hrs 1 tablet under the tongue and allow to dissolve before meals as needed 4h Active Naproxen 500MG Orally every 12 hrs 1 tablet as needed 12h 30 Active ProAir HFA 108 (90 Base) MCG/ACT Inhalation every 6 hrs 2 puffs as needed 6h 04 Oct, 2017 10 days Active Flonase Allergy Relief 50 MCG/ACT Nasally Once a day 1 spray in each nostril 24h Active Tessalon Perles 100 mg Orally Three times a day 1 capsule as needed 8h Jan, Active Omeprazole 20 mg Orally Once a day 1 capsule 24h Active Hydrochlorothiazide 25MG Orally Once a day 1 tablet 24h 90 Active Hyoscyamine Sulfate ER 0.375MG Orally every 12 hrs 1 tablet 12h 90 Active Cozaar 100MG Orally Once a day 1 tablet 24h 90 Active Bystolic 10MG TAKE ONE TABLET BY MOUTH ONCE DAILY Active Claritin 10 MG Orally Once a day 1 tablet 24h Not-Taking Sudafed 12 Hour 120 MG Orally every 12 hrs 1 tablet as needed 12h Jan, Active RESULTS No Results PROCEDURES No Known procedures INSTRUCTIONS MEDICATIONS ADMINISTERED No Known Medications MEDICAL (GENERAL) HISTORY Type Description Date Medical History Essential hypertension Medical History Irritable bowel syndrome with diarrhea Medical History Unspecified osteoarthritis, unspecified site Medical History Chronic sinusitis, unspecified Surgical History tonsillectomy Surgical History umbilical hernia repair Surgical History achilles tendon repair left foot Hospitalization History surgeries only
--- OUTSIDE RECORDS SUMMARY | 2020-04-20 10:50 | XMS REPORT ---
Author Dangelo Mckenzie Organization e[employer] Address Unknown Phone Unavailable Care Team Providers Care Patient Services Rep Name Role Phone RAISSA CA CP Unavailable Allergies, Adverse Reactions, Alerts Substance Reaction Event Type Sulfamethoxazole-Trimethoprim Info Not Available Drug Aller gy Problems Problem Type Condition Code Onset Dates Condition Statu s Problem Essential hypertension I10 Activ e Problem Irritable bowel syndrome with diarrhea K58.0 Active Problem Arthritis M19.90 Active Assessment Essential hypertension I10 Activ e Medications Medication Code System Code Instructions Start Date End Date Status Dosage Metoprolol Succinate ER [facility] [address]-60 50 MG Orally Once a day 1 tablet Omeprazole [facility] [address]-10 20 mg Orally Once a day 1 capsule Hyoscyamine Sulfate CR [facility] [address]-42 0.375 MG Orally every 12 hr s 1 tablet Hyoscyamine Sulfate [facility] [address]-10 0.125 MG Sublingual every 4 hr s 1 tablet under the tongue and allow to dissolve before meals as needed Flonase Allergy Relief [facility] [address]-03 50 MCG/ACT Nasally Once a d ay 1 spray in each nostril Hydrochlorothiazide [facility] [address]-21 25 MG Orally Once a day Aug 1 tablet Cozaar [facility] [address]-82 100 MG Orally Once a day Jul 05, 2016 1 tablet Naproxen [facility] [address]-18 500 MG Orally every 12 hrs 1 tablet as needed Procedures Procedure Coding System Code Date Office Visit, Est Pt., Level 2 CPT-4 86080 N 2015 Vital Signs Date/Time: Sep 09, 2016 Cardiac Monitoring Heart Rate 68 bpm Weight 194 lbs Height 71 in BMI 27.05 Index Blood Pressure Diastolic 90 mmHg Blood Pressure Systolic 138 mmHg Results No Known Results Summary Purpose eClinicalWorks Submission
--- OUTSIDE RECORDS SUMMARY | 2020-04-20 10:50 | XMS REPORT ---
Author Author Dangelo BARNETT [facility] Address [address] [place] [address] Care Team Providers Care Physician Practice Administrator Name Role Phone SEBAS BARNETT Unavailable PROBLEMS Type Condition ICD9-CM Code [id number] Code Onset Dates Condition S tatus SNOMED Code Problem Family history of heart disease Z82.49 Active 904067223 Problem Family history of prostate cancer Z80.42 Active 158412441 Problem Irritable bowel syndrome with diarrhea K58.0 Active 838979691 Problem Essential hypertension I10 Active 50325860 Problem Gastroesophageal reflux disease with esophagitis K 21.0 Active 594804049 Problem Arthritis M19.90 Active 6576553 ALLERGIES Substance Reaction Event Type Date Status Sulfamethoxazole-Trimethoprim Unknown Drug Allergy Oct, 201 7 Active ENCOUNTERS Encounter Location Date Diagnosis [facility] [address] [place] [id number] [place] [phone] Feb, Seasonal allergic rhinitis, unspecified trigger J30.2 [facility] [address] [place] [id number] [address] [place] [phone] Jan, Viral upper respiratory trac t infection J06.9 [facility] [address] [place] [id number] [address] [place] [phone] Oct, Essential hypertension I10 a nd Gastroesophageal reflux disease with esophagitis K21.0 [facility] [address] [place] [id number] [address] [place] [phone] Oct, Bronchitis J40 and Subacute maxillary sinusitis J01.00 [facility] [address] [place] [id number] [address] [place] [phone] 24 Sep, 2017 Acute upper respiratory infe ction, unspecified J06.9 ; Encounter for immunization Z23 and Other viral agents as the cause of diseases classified elsewhere B97.89 [facility] IN [facility] [address] [facility] [id number] [address] [place] [phone] 05 Jul, 2017 Chronic seasonal allergic rh initis due to other allergen J30.2 [place] [address] [address] [facility] [id number] [address] [place] [phone] 10 Jun, 2017 Essential hypertension I10 [facility] [place] 755[address] N [facility] [id number] [address] [place] [phone] May, Acute upper respiratory infe ction, unspecified J06.9 [place] [address] [address] [facility] [id number] [address] [place] [phone] May, Essential hypertension I10 ; Arthritis M19.90 ; Family history of prostate cancer Z80.42 and Family history of heart disease Z82.49 [place] [address] [address] [place] [id number] [address] [place] [phone] 10 Dec, 2016 Essential hypertension I10 a nd Gastroesophageal reflux disease with esophagitis K21.0 [facility] [place] [address] N [facility] [id number] [address] [place] [phone] Oct, Other specified bacterial ag ents as the cause of diseases classified elsewhere B96.89 and Acute sinusitis, unspecified J01.90 [place] [address] [place] [id number] [address] [place] [phone] Oct, [place] [address] [place] [id number] [address] [place] [phone] Oct, [place] [address] [address] [facility] [id number] [address] [place] [phone] Sep, Essential hypertension I10 [facility] [place] [address] [address] [facility] [id number] [address] [place] [phone] Aug, Secondary infection of skin L08.89 and Essential hypertension I10 [place] [address] [address] [facility] [id number] [address] [place] [phone] Aug, Essential hypertension I10 a nd Encounter for immunization Z23 [place] [address] [address] [facility] [id number] [place] [address] Aug, [facility] [address] [facility] [id number] [place] [address] Jul, [facility] [address] [facility] [id number] [address] [address] Jun, Essential hypertension I10 a nd Irritable bowel syndrome with diarrhea K58.0 IMMUNIZATIONS No Known Immunizations SOCIAL HISTORY Never Assessed REASON FOR VISIT congestion- has not got better since last visit JStrasserRN PLAN OF CARE Activity Details Follow Up prn Reason: VITAL SIGNS Height 71 in 2017-10-12 Weight 197 lbs 2017-10-12 Temperature 97.5 degrees Fahrenheit 2017-10-12 Heart Rate 56 bpm 2017-10-12 Respiratory Rate 18 2017-10-12 BMI 27.47 kg/m2 2017-10-12 Blood pressure systolic 132 mmHg 2017-10-12 Blood pressure diastolic 64 mmHg 2017-10-12 MEDICATIONS Medication Instructions Dosage Frequency Start Date End Date Duration S tatus Hyoscyamine Sulfate ER 0.375 MG Orally every 12 hrs 1 tablet 12h Active Flonase Allergy Relief 50 MCG/ACT Nasally Once a day 1 spray in each nostril 24h Active Omeprazole 20 mg Orally Once a day 1 capsule 24h Active Augmentin 875-125 MG Orally every 12 hrs 1 tablet 12h 04 Oct, 017 18 Oct, 2017 14 days Active ProAir HFA 108 (90 Base) MCG/ACT Inhalation every 6 hrs 2 puffs as needed 6h Oct, 10 days Active Hydrochlorothiazide 25MG Orally Once a day 1 tablet 24h 90 Active Cozaar 100MG Orally Once a day 1 tablet 24h Active Hyoscyamine Sulfate ER 0.375 ER Orally every 12 hrs 1 tablet 12h 30 Active Naproxen 500MG Orally every 12 hrs 1 tablet as needed 12h 30 Active Claritin 10 MG Orally Once a day 1 tablet 24h Not-Taking Hyoscyamine Sulfate 0.125 MG Sublingual every 4 hrs 1 tablet under the tongue and allow to dissolve before meals as needed 4h Active Bystolic 10MG TAKE ONE TABLET BY MOUTH ONCE DAILY Active PredniSONE 20 MG Orally Once a day 2 tablet 24h Oct, Oct, 5 days Active RESULTS No Results PROCEDURES No Known [...]
--- OUTSIDE RECORDS SUMMARY | 2020-04-20 10:50 | XMS REPORT ---
Author Author Dangelo CA Organization [facility] Address [address] [place] [address] Care Team Providers Care Nitrocellulose Maker Name Role Phone RAISSA CA Unavailable PROBLEMS Type Condition ICD9-CM Code IXI15-MS Code Onset Dates Condition S tatus SNOMED Code Problem Essential hypertension I10 Active 91240100 Problem Arthritis M19.90 Active 0199671 Problem Irritable bowel syndrome with diarrhea K58.0 Active 450210979 Problem At risk for heart disease Z91.89 Acti ve 069810436 Problem Seasonal allergies J30.2 Active 4 02789534 Problem Family history of prostate cancer Z80.42 Active 831410410 Problem Gastroesophageal reflux disease with esophagitis K 21.0 Active 252911951 Problem 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 Active 973100023 Problem Family history of heart disease Z82.49 Active 016765789 ALLERGIES No Information ENCOUNTERS Encounter Location Date Diagnosis [facility] [address] [place] [address] [id number] [address] [place] [phone] 16 May, 2018 At risk for heart disease Z9 1.89 [facility] [address] [place] [address] [id number] [address] [place] [phone] 13 May, 2018 Essential hypertension I10 ; Family history of heart disease Z82.49 ; 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 ; Irritable bowel syndrome with diarrhea K58.0 and Seasonal allergies J30.2 [facility] [address] [facility] [id number] [address] [place] [phone] Feb, Seasonal allergic rhinitis, unspecified trigger J30.2 [facility] [address] [place] [id number] [address] [place] [phone] Jan, Viral upper respiratory trac t infection J06.9 [facility] [address] [place] [id number] [address] [place] [phone] Oct, Essential hypertension I10 a nd Gastroesophageal reflux disease with esophagitis K21.0 [facility] [address] [place] [id number] [place] [phone] Oct, Bronchitis J40 and Subacute maxillary sinusitis J01.00 [facility] [place] [address] [place] [id number] [place] [address] Sep, Acute upper respiratory infe ction, unspecified J06.9 ; Encounter for immunization Z23 and Other viral agents as the cause of diseases classified elsewhere B97.89 [facility] [place] [address] [place] [id number] [place] [phone] 05 Jul, 2017 Chronic seasonal allergic rh initis due to other allergen J30.2 [place] [address] [address] [place] [id number] [place] [address] Jun, Essential hypertension I10 [facility] [place] [address] [address] May, Acute upper respiratory infe ction, unspecified J06.[address] [address] May, Essential hypertension I10 ; Arthritis M19.90 ; Family history of prostate cancer Z80.42 and Family history of heart disease Z82.[address] [address] 10 Dec, 2016 Essential hypertension I10 a nd Gastroesophageal reflux disease with esophagitis K21.0 [facility] [place] [address] [place] [id number] [place] [address] Oct, Other specified bacterial ag ents as the cause of diseases classified elsewhere B96.89 and Acute sinusitis, unspecified J01.90 [place] [address] [place] [id number] [place] [phone] Oct, [place] [address] [phone] Oct, [facility] [address] [facility] [id number] [address] [place] [phone] Sep, Essential hypertension I10 [facility] [address] [facility] [id number] [address] [place] [phone] Aug, Secondary infection of skin L08.89 and Essential hypertension I10 [facility] [address] [facility] [id number] [address] [place] [phone] Aug, Essential hypertension I10 a nd Encounter for immunization Z23 [facility] [address] [facility] [id number] [address] [place] [phone] Aug, [facility] [address] [facility] [id number] [address] [place] [phone] Jul, [facility] [address] [facility] [id number] [address] [place] [phone] Jun, Essential hypertension I10 a nd Irritable bowel syndrome with diarrhea K58.0 IMMUNIZATIONS No Known Immunizations SOCIAL HISTORY Never Assessed REASON FOR VISIT PLAN OF CARE VITAL SIGNS MEDICATIONS Medication Instructions Dosage Frequency Start Date End Date Duration S tatus Atorvastatin Calcium 20 mg Orally Once a day 1 tablet 24h 2017 30 day(s) Active RESULTS No Results PROCEDURES No Known [...]
--- OUTSIDE RECORDS SUMMARY | 2020-04-20 10:50 | XMS REPORT ---
Author Author Dangelo NEWMAN Organization [facility] Address [address] [place] [address] Care Team Providers Care Boat Engines Installer Name Role Phone MICHELLE NEWMAN Unavailable PROBLEMS Type Condition ICD9-CM Code VQW92-UO Code Onset Dates Condition S tatus SNOMED Code Problem Essential hypertension I10 Active 38871445 Problem Arthritis M19.90 Active 8068152 Problem Irritable bowel syndrome with diarrhea K58.0 Active 713388953 Problem At risk for heart disease Z91.89 Acti ve 173271437 Problem Seasonal allergies J30.2 Active 4 53302321 Problem Family history of prostate cancer Z80.42 Active 133709636 Problem Gastroesophageal reflux disease with esophagitis K 21.0 Active 446600268 Problem 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 Active 606658222 Problem Family history of heart disease Z82.49 Active 643617360 ALLERGIES Substance Reaction Event Type Date Status Sulfamethoxazole-Trimethoprim Unknown Drug Allergy Sep, 201 8 Active ENCOUNTERS Encounter Location Date Diagnosis [place] [address] [address] Sep, Olecranon bursitis of left e lbow M70.22 [place] [address] [address] [place] [id number] [address] [place] [phone] Aug, Encounter for immunization Z 23 [place] [address] [address] [place] [id number] [address] [place] [address] 16 May, 2018 At risk for heart disease Z9 1.89 [place] [address] [address] May, Essential hypertension I10 ; Family history of heart disease Z82.49 ; 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 ; Irritable bowel syndrome with diarrhea K58.0 and Seasonal allergies J30.2 [facility] [address] [address] Feb, Seasonal allergic rhinitis, unspecified trigger J30.2 [facility] WALK IN [address] [address] Jan, Viral upper respiratory trac t infection J06.[address] [address] Oct, Essential hypertension I10 a nd Gastroesophageal reflux disease with esophagitis K21.0 [facility] WALK IN [address] [address] 04 Oct, 2017 Bronchitis J40 and Subacute maxillary sinusitis J01.00 [facility] WALK IN [address] [address] Sep, Acute upper respiratory infe ction, unspecified J06.9 ; Encounter for immunization Z23 and Other viral agents as the cause of diseases classified elsewhere B97.89 [facility] IN [address] [address] 05 Jul, 2017 Chronic seasonal allergic rh initis due to other allergen J30.[address] [address] Jun, Essential hypertension I10 [facility] IN [address] [address] May, Acute upper respiratory infe ction, unspecified J06.[address] [address] May, Essential hypertension I10 ; Arthritis M19.90 ; Family history of prostate cancer Z80.42 and Family history of heart disease Z82.[address] [address] 10 Dec, 2016 Essential hypertension I10 a nd Gastroesophageal reflux disease with esophagitis K21.0 [facility] WALK IN [address] [address] Oct, Other specified bacterial ag ents as the cause of diseases classified elsewhere B96.89 and Acute sinusitis, unspecified J01.90 [facility] [address] [id number] [address] [place] [phone] Oct, [facility] [address] [facility] [id number] [address] [place] [phone] Oct, [facility] [address] [facility] [id number] [address] [place] [phone] Sep, Essential hypertension I10 [facility] [address] [facility] [id number] [address] [place] [address] Aug, Secondary infection of skin L08.89 and Essential hypertension I10 [place] [address] [address] [facility] [id number] [address] [place] [phone] Aug, Essential hypertension I10 a nd Encounter for immunization Z23 [place] [address] [address] [facility] [id number] [address] [place] [phone] Aug, [place] [address] [address] [facility] [id number] [address] [place] [phone] Jul, [place] [address] [address] [facility] [id number] [address] [place] [phone] Jun, Essential hypertension I10 a nd Irritable bowel syndrome with diarrhea K58.0 IMMUNIZATIONS No Known Immunizations SOCIAL HISTORY Never Assessed REASON FOR VISIT [place]bow c/o -Mayito LOFTON PLAN OF CARE Activity Details Future/Pending Procedure ASPIRATE/INJ GANGLION CYST VITAL SIGNS Height 71 in 2018-09-29 Weight 200 lbs 2018-09-29 Temperature 98.0 degrees Fahrenheit 2018-09-29 Heart Rate 82 bpm 2018-09-29 Respiratory Rate 18 2018-09-29 BMI 27.89 kg/m2 2018-09-29 Blood pressure systolic 140 mmHg 2018-09-29 Blood pressure diastolic 70 mmHg 2018-09-29 MEDICATIONS Medication Instructions Dosage Frequency Start Date End Date Duration S tatus Hyoscyamine Sulfate ER 0.375MG Orally every 12 hrs 1 tablet 12h 90 Active Zinc Active Fish Oil Active Omeprazole 20 mg Orally Once a day 1 capsule 24h Active Magnesium Active Bystolic 10MG TAKE ONE TABLET BY MOUTH ONCE DAILY Active ProAir HFA 108 (90 Base) MCG/ACT Inhalation every 6 hrs 2 puffs as needed 6h Oct, 10 days Not-Taking Hyoscyamine Sulfate 0.125MG Sublingual every 4 hrs 1 tablet under the tongue and allow to dissolve before meals as needed 4h Active Claritin 10 MG Orally Once a day 1 tablet 24h Active Atorvastatin Calcium 20 mg Orally Once a day 1 tablet 24h 16 2017 30 day(s) Active Hydrochlorothiazide 25MG Orally Once a day 1 tablet 24h Active Singulair 10 MG Orally Once a day 1 tablet in the evening 24h Feb, 30 day(s) Active Flonase Allergy Relief 50 MCG/ACT Nasally Once a day 1 spray in each nostril 24h Active Naproxen 500MG Orally every 12 hrs 1 tablet as needed 12h Active Viagra 25 MG Orally Once a day 1 tablet as needed 24h May, Active Cozaar 100MG Orally Once a day 1 tablet 24h Active RESULTS No Results PROCEDURES Procedure Date Ordered Result Body Site ASPIRATE/INJ GANGLION CYST Sep 29, 2018 INSTRUCTIONS MEDICATIONS ADMINISTERED No Known Medications MEDICAL (GENERAL) HISTORY Type Description Date Medical History Essential hypertension Medical History Irritable bowel syndrome with diarrhea Medical History Unspecified osteoarthritis, unspecified site Medical History Chronic sinusitis, unspecified Surgical History tonsillectomy Surgical History umbilical hernia repair Surgical History achilles tendon repair left foot Hospitalization History surgeries only
--- OUTSIDE RECORDS SUMMARY | 2020-04-20 10:50 | XMS REPORT ---
Author Author Dangelo CA Organization [facility] Address [address] [place] [address] Care Team Providers Care Cardiovascular Surgical Tech Name Role Phone RAISSA CA Unavailable PROBLEMS Type Condition ICD9-CM Code KOR28-QQ Code Onset Dates Condition S tatus SNOMED Code Problem Family history of heart disease Z82.49 Active 995527043 Problem Family history of prostate cancer Z80.42 Active 421971717 Problem Irritable bowel syndrome with diarrhea K58.0 Active 359919003 Problem Essential hypertension I10 Active 05567414 Problem Gastroesophageal reflux disease with esophagitis K 21.0 Active 341394788 Problem Arthritis M19.90 Active 8408086 ALLERGIES Substance Reaction Event Type Date Status Sulfamethoxazole-Trimethoprim Unknown Drug Allergy Dec, 7 Active SOCIAL HISTORY Never Assessed PLAN OF CARE Activity Details Follow Up 6 Months Reason: VITAL SIGNS Height 71 in 2016-12-19 Weight 197 lbs 2016-12-19 Heart Rate 76 bpm 2016-12-19 Respiratory Rate 18 2016-12-19 BMI 27.47 kg/m2 2016-12-19 Blood pressure systolic 130 mmHg 2016-12-19 Blood pressure diastolic 90 mmHg 2016-12-19 MEDICATIONS Medication Instructions Dosage Frequency Start Date End Date Duration S tatus Hyoscyamine Sulfate CR 0.375 MG Orally every 12 hrs 1 tablet 12h Active Naproxen 500 MG Orally every 12 hrs 1 tablet as needed 12h Active Hydrochlorothiazide 25 MG Orally Once a day 1 tablet 24h Aug, 6 Active Omeprazole 20 mg Orally Once a day 1 capsule 24h Active Hyoscyamine Sulfate 0.125 MG Sublingual every 4 hrs 1 tablet under the tongue and allow to dissolve before meals as needed 4h Active Cozaar 100 MG Orally Once a day 1 tablet 24h Jun, Active Metoprolol Succinate ER 50 MG Orally Once a day 1 tablet 24h Active Flonase Allergy Relief 50 MCG/ACT Nasally Once a day 1 spray in each nostril 24h Active RESULTS No Results PROCEDURES No Known procedures IMMUNIZATIONS No Known Immunizations MEDICAL (GENERAL) HISTORY Type Description Date Medical History Essential hypertension Medical History Irritable bowel syndrome with diarrhea Medical History Unspecified osteoarthritis, unspecified site Medical History Chronic sinusitis, unspecified Surgical History tonsillectomy Surgical History umbilical hernia repair Surgical History achilles tendon repair left foot Hospitalization History surgeries only
--- OUTSIDE RECORDS SUMMARY | 2020-04-20 10:50 | XMS REPORT ---
Author Dangelo Mckenzie Organization [employer] Address Unknown Phone Unavailable Care Team Providers Care Fund Raiser Name Role Phone RAISSA CA CP Unavailable Allergies No Known Allergies Problems Problem Type Condition Code Onset Dates Condition Statu s Problem Essential hypertension I10 Activ e Problem Irritable bowel syndrome with diarrhea K58.0 Active Problem Arthritis M19.90 Active Medications Medication Code System Code Instructions Start Date End Date Status Dosage Naproxen [facility] [address]-13 500 MG Orally every 12 hrs 1 tablet as needed Results No Known Results Summary Purpose [employer] Submission
--- OUTSIDE RECORDS SUMMARY | 2020-04-20 10:50 | XMS REPORT ---
Author Author Dangelo NEWMAN Organization [facility] Address [address] [place] [address] Care Team Providers Care Asphalt Still Operator Name Role Phone MICHELLE NEWMAN Unavailable PROBLEMS Type Condition ICD9-CM Code [id number] Code Onset Dates Condition S tatus SNOMED Code Problem Essential hypertension I10 Active 24874604 Problem Arthritis M19.90 Active 9234220 Problem Irritable bowel syndrome with diarrhea K58.0 Active 338596486 Problem At risk for heart disease Z91.89 Acti ve 987264024 Problem Seasonal allergies J30.2 Active 4 01662924 Problem Family history of prostate cancer Z80.42 Active 555011598 Problem Gastroesophageal reflux disease with esophagitis K 21.0 Active 203603917 Problem 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 Active 592420832 Problem Family history of heart disease Z82.49 Active 979292707 ALLERGIES Substance Reaction Event Type Date Status Sulfamethoxazole-Trimethoprim Unknown Drug Allergy Oct, 201 8 Active ENCOUNTERS Encounter Location Date Diagnosis [place] [address] [place] [id number] [place] [address] Oct, [place] [address] [place] [id number] [address] [place] [address] Oct, Effusion of left elbow M25.4 22 [place] [address] [place] [id number] [place] [address] Sep, Olecranon bursitis of left e lbow M70.22 [place] [address] [place] [id number] [place] [address] Aug, Encounter for immunization Z 23 [place] [address] [address] [facility] [id number] [address] [place] [address] May, At risk for heart disease Z9 1.89 [place] [address] [address] May, Essential hypertension I10 ; Family history of heart disease Z82.49 ; 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 ; Irritable bowel syndrome with diarrhea K58.0 and Seasonal allergies J30.2 [facility] [place] [address] [address] Feb, Seasonal allergic rhinitis, unspecified trigger J30.2 [facility] [place] [address] [address] Jan, Viral upper respiratory trac t infection J06.[address] [address] Oct, Essential hypertension I10 a nd Gastroesophageal reflux disease with esophagitis K21.0 [facility] [address] [address] Oct, Bronchitis J40 and Subacute maxillary sinusitis J01.00 [facility] [address] [address] Sep, Acute upper respiratory infe ction, unspecified J06.9 ; Encounter for immunization Z23 and Other viral agents as the cause of diseases classified elsewhere B97.89 [facility] [address] [address] 05 Jul, 2017 Chronic seasonal allergic rh initis due to other allergen J30.2 [place] [address] [address] Jun, Essential hypertension I10 [facility] [address] [address] May, Acute upper respiratory infe ction, unspecified J06.9 [place] [address] [address] May, Essential hypertension I10 ; Arthritis M19.90 ; Family history of prostate cancer Z80.42 and Family history of heart disease Z82.49 [facility] [address] [id number] [address] [place] [address] 10 Dec, 2016 Essential hypertension I10 a nd Gastroesophageal reflux disease with esophagitis K21.0 [facility] [address] [id number] [address] [place] [address] Oct, Other specified bacterial ag ents as the cause of diseases classified elsewhere B96.89 and Acute sinusitis, unspecified J01.90 [facility] [address] [id number] [address] [place] [address] Oct, [facility] [address] [id number] [address] [place] [phone] Oct, [facility] [address] [id number] [address] [place] [phone] Sep, Essential hypertension I10 [facility] [address] [id number] [address] [place] [address] Aug, Secondary infection of skin L08.89 and Essential hypertension I10 [facility] [address] [id number] [address] [place] [address] Aug, Essential hypertension I10 a nd Encounter for immunization Z23 [facility] [address] [id number] [address] [place] [address] Aug, [place] [facility] [id number] [address] [place] [address] Jul, [facility] [address] [facility] [id number] [address] [place] [address] Jun, Essential hypertension I10 a nd Irritable bowel syndrome with diarrhea K58.0 IMMUNIZATIONS No Known Immunizations SOCIAL HISTORY Never Assessed REASON FOR VISIT elbow c/o-[place] ch, pt states he was here a couple of weeks ago for his left elbow and his elbow drained but it has came back PLAN OF CARE VITAL SIGNS Height 71 in 2018-10-13 Weight 201.0 lbs 2018-10-13 Temperature 98.3 degrees Fahrenheit 2018-10-13 Heart Rate 60 bpm 2018-10-13 Respiratory Rate 18 2018-10-13 Oximetry on room air:97 % 2018-10-13 BMI 28.03 kg/m2 2018-10-13 Blood pressure systolic 150 mmHg 2018-10-13 Blood pressure diastolic 90 mmHg 2018-10-13 MEDICATIONS Medication Instructions Dosage Frequency Start Date End Date Duration S tatus Cozaar 100MG Orally Once a day 1 tablet 24h Active Clindamycin HCl 300 MG Orally 4 times a day 1 capsule 6h Oct 10 day(s) Active Hydrochlorothiazide 25MG Orally Once a day 1 tablet 24h Active Naproxen 500MG Orally every 12 hrs 1 tablet as needed 12h Active ProAir HFA 108 (90 Base) MCG/ACT Inhalation every 6 hrs 2 puffs as needed 6h Oct, 10 days Not-Taking Fish Oil Active Zinc Active Omeprazole 20 mg Orally Once a day 1 capsule 24h Active Flonase Allergy Relief 50 MCG/ACT Nasally Once a day 1 spray in each nostril 24h Active Viagra 25 MG Orally Once a day 1 tablet as needed 24h May, Active Atorvastatin Calcium 20 mg Orally Once a day 1 tablet 24h 16 2017 30 day(s) Active Claritin 10 MG Orally Once a day 1 tablet 24h Active Bystolic 10MG TAKE ONE TABLET BY MOUTH ONCE DAILY Active Hyoscyamine Sulfate ER 0.375MG Orally every 12 hrs 1 tablet 12h Active Singulair 10 MG Orally Once a day 1 tablet in the evening 24h Feb, 30 day(s) Active Hyoscyamine Sulfate 0.125MG Sublingual every 4 hrs 1 tablet under the tongue and allow to dissolve before meals as needed 4h Active Magnesium Active RESULTS No Results PROCEDURES Procedure Date Ordered Result Body Site CULTURE, BACTERIA, OTHER Oct 13, 2018 INSTRUCTIONS MEDICATIONS ADMINISTERED No Known Medications MEDICAL (GENERAL) HISTORY Type Description Date Medical History Essential hypertension Medical History Irritable bowel syndrome with diarrhea Medical History Unspecified osteoarthritis, unspecified site Medical History Chronic sinusitis, unspecified Surgical History tonsillectomy Surgical History umbilical hernia repair Surgical History achilles tendon repair left foot Hospitalization History surgeries only
--- OUTSIDE RECORDS SUMMARY | 2020-04-20 10:50 | XMS REPORT ---
Author Dangelo Mckenzie Organization [employer] Address Unknown Phone Unavailable Care Team Providers Care Instructor Bus Trolley [employer]i Name Role Phone RAISSA CA CP Unavailable Allergies No Known Allergies Problems Problem Type Condition Code Onset Dates Condition Statu s Problem Irritable bowel syndrome with diarrhea K58.0 Active Problem Essential hypertension I10 Activ e Medications Medication Code System Code Instructions Start Date End Date Status Dosage Hyoscyamine Sulfate [facility] [address]-57 0.375 MG Orally every 12 hr s 1 tablet Results No Known Results Summary Purpose [employer] Submission
--- OUTSIDE RECORDS SUMMARY | 2020-04-20 10:50 | XMS REPORT ---
Author Author Dangelo NEWMAN Organization [facility] Address [address] [place] [address] Care Team Providers Care Refuse Collector Name Role Phone MICHELLE NEWMAN Unavailable PROBLEMS Type Condition ICD9-CM Code PUQ18-DH Code Onset Dates Condition S tatus SNOMED Code Problem Essential hypertension I10 Active 26700944 Problem Arthritis M19.90 Active 1811578 Problem Irritable bowel syndrome with diarrhea K58.0 Active 489720908 Problem At risk for heart disease Z91.89 Acti ve 196007969 Problem Seasonal allergies J30.2 Active 4 59002296 Problem Family history of prostate cancer Z80.42 Active 323926547 Problem Gastroesophageal reflux disease with esophagitis K 21.0 Active 993529199 Problem 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 Active 115207889 Problem Family history of heart disease Z82.49 Active 610741756 ALLERGIES No Information ENCOUNTERS Encounter Location Date Diagnosis [place] [address] [address] Oct, [place] [address] [address] [place] [id number] [place] [address] Oct, Effusion of left elbow M25.4 22 [place] [address] [address] [place] [id number] [place] [address] Sep, Olecranon bursitis of left e lbow M70.22 [place] [address] [address] [place] [id number] [place] [address] Aug, Encounter for immunization Z 23 [place] [address] [address] [place] [id number] [place] [address] 16 May, 2018 At risk for heart disease Z9 1.89 [place] [address] [address] [place] [id number] [place] [address] May, Essential hypertension I10 ; Family history of heart disease Z82.49 ; 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 ; Irritable bowel syndrome with diarrhea K58.0 and Seasonal allergies J30.2 [facility] [address] [address] Feb, Seasonal allergic rhinitis, unspecified trigger J30.2 [facility] [address] [address] Jan, Viral upper respiratory trac t infection J06.[address] [address] Oct, Essential hypertension I10 a nd Gastroesophageal reflux disease with esophagitis K21.0 [facility] [address] [address] Oct, Bronchitis J40 and Subacute maxillary sinusitis J01.00 [facility] [address] [address] Sep, Acute upper respiratory infe ction, unspecified J06.9 ; Encounter for immunization Z23 and Other viral agents as the cause of diseases classified elsewhere B97.89 [facility] [address] [address] Jul, Chronic seasonal allergic rh initis due to other allergen J30.[address] [address] Jun, Essential hypertension I10 [facility] [address] [address] May, Acute upper respiratory infe ction, unspecified J06.[address] [address] May, Essential hypertension I10 ; Arthritis M19.90 ; Family history of prostate cancer Z80.42 and Family history of heart disease Z82.[address] [place] [address] 10 Dec, 2016 Essential hypertension I10 a nd Gastroesophageal reflux disease with esophagitis K21.0 [facility] [address] [place] [id number] [place] [address] Oct, Other specified bacterial ag ents as the cause of diseases classified elsewhere B96.89 and Acute sinusitis, unspecified J01.90 [place] [address] [address] [place] [id number] [place] [phone] Oct, [place] [address] [address] [place] [id number] [place] [address] Oct, [place] [address] [address] Sep, Essential hypertension I10 [facility] [address] [place] [id number] [place] [address] Aug, Secondary infection of skin L08.89 and Essential hypertension I10 [place] [address] [address] [place] [id number] [place] [address] Aug, Essential hypertension I10 a nd Encounter for immunization Z23 [place] [address] [address] [place] [id number] [place] [address] Aug, [place] [address] [address] [place] [id number] [place] [address] Jul, [place] [address] [address] [place] [id number] [place] [address] Jun, Essential hypertension I10 a nd Irritable bowel syndrome with diarrhea K58.0 IMMUNIZATIONS No Known Immunizations SOCIAL HISTORY Never Assessed REASON FOR VISIT PLAN OF CARE VITAL SIGNS MEDICATIONS Unknown Medications RESULTS No Results PROCEDURES No Known procedures [...]
--- OUTSIDE RECORDS SUMMARY | 2020-04-20 10:50 | XMS REPORT ---
Author Dangelo Dunlap [facility] Address Unknown Phone Unavailable Care Team Providers Care Testing Manager Name Role Phone CHENTE PRATHER CP Unavailable Allergies, Adverse Reactions, Alerts Substance Reaction Event Type Sulfamethoxazole-Trimethoprim Info Not Available Drug Aller gy Problems Problem Type Condition Code Onset Dates Condition Statu s Problem Essential hypertension I10 Activ e Problem Irritable bowel syndrome with diarrhea K58.0 Active Problem Arthritis M19.90 Active Assessment Secondary infection of skin L08.89 Active Assessment Essential hypertension I10 Activ e Medications Medication Code System Code Instructions Start Date End Date Status Dosage Keflex [facility] [address]-14 500 MG Orally three times daily O ct 2015Sep 08, 2016 1 capsule Hyoscyamine Sulfate CR [facility] [address]-72 0.375 MG Orally every 12 hr s 1 tablet Naproxen [facility] [address]-85 500 MG Orally every 12 hrs 1 tablet as needed Flonase Allergy Relief [facility] 78290-2020-18 50 MCG/ACT Nasally Once a d ay 1 spray in each nostril Omeprazole [facility] [address]-76 20 mg Orally Once a day 1 capsule Hyoscyamine Sulfate [facility] [address]-37 0.125 MG Sublingual every 4 hr s 1 tablet under the tongue and allow to dissolve before meals as needed Cozaar [facility] [address]-15 100 MG Orally Once a day Jul 05, 2016 1 tablet Hydrochlorothiazide [facility] [address]-49 25 MG Orally Once a day Aug 1 tablet Metoprolol Succinate ER [facility] [address]-20 50 MG Orally Once a day 1 tablet Procedures Procedure Coding System Code Date Office Visit, Est Pt., Level 3 CPT-[address] 2015 Vital Signs Date/Time: Aug 29, 2016 Cardiac Monitoring Heart Rate 88 bpm Weight 194.6 lbs Height 71 in BMI 27.14 Index Blood Pressure Diastolic 100 mmHg Blood Pressure Systolic 180 mmHg Results No Known Results Summary Purpose [employer] Submission
--- OUTSIDE RECORDS SUMMARY | 2020-04-20 10:50 | XMS REPORT ---
Author Author [facility] Address [address] [place] [address] Care Team Providers Care Agricultural Engineering Technologist Name Role Phone YAMILKA CHENTE Unavailable PROBLEMS Type Condition ICD9-CM Code DFG23-CT Code Onset Dates Condition S tatus SNOMED Code Problem Essential hypertension I10 Active 48308556 Problem Arthritis M19.90 Active 6493461 Problem Irritable bowel syndrome with diarrhea K58.0 Active 740498211 Problem At risk for heart disease Z91.89 Acti ve 225447691 Problem Seasonal allergies J30.2 Active 4 05038249 Problem Family history of prostate cancer Z80.42 Active 353705921 Problem Gastroesophageal reflux disease with esophagitis K 21.0 Active 890635144 Problem 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 Active 096813144 Problem Family history of heart disease Z82.49 Active 613042403 ALLERGIES Substance Reaction Event Type Date Status Sulfamethoxazole-Trimethoprim Unknown Drug Allergy Feb, 201 8 Active ENCOUNTERS Encounter Location Date Diagnosis [facility] [address] [place] [id number] [place] [address] May, At risk for heart disease Z9 1.89 [facility] [address] [place] [id number] [place] [address] May, Essential hypertension I10 ; Family history of heart disease Z82.49 ; 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 ; Irritable bowel syndrome with diarrhea K58.0 and Seasonal allergies J30.2 [facility] [address] [facility] [id number] [address] [place] [address] Feb, Seasonal allergic rhinitis, unspecified trigger J30.2 [facility] [address] [facility] [id number] [address] [place] [address] Jan, Viral upper respiratory trac t infection J06.9 [place] [address] [address] 12 Oct, 2017 Essential hypertension I10 a nd Gastroesophageal reflux disease with esophagitis K21.0 [facility] [place] [address] [address] 04 Oct, 2017 Bronchitis J40 and Subacute maxillary sinusitis J01.00 [facility] [address] [address] Sep, Acute upper respiratory infe ction, unspecified J06.9 ; Encounter for immunization Z23 and Other viral agents as the cause of diseases classified elsewhere B97.89 [facility] [place] [address] [address] 05 Jul, 2017 Chronic seasonal allergic rh initis due to other allergen J30.[address] [address] Jun, Essential hypertension I10 [facility] [place] [address] [address] May, Acute upper respiratory infe ction, unspecified J06.[address] [address] May, Essential hypertension I10 ; Arthritis M19.90 ; Family history of prostate cancer Z80.42 and Family history of heart disease Z82.[address] [address] Dec, Essential hypertension I10 a nd Gastroesophageal reflux disease with esophagitis K21.0 [facility] [place] [address] [address] Oct, Other specified bacterial ag ents as the cause of diseases classified elsewhere B96.89 and Acute sinusitis, unspecified J01.[address] [address] Oct, [address] [id number] [address] [place] [address] Oct, [facility] [address] [facility] [id number] [address] [place] [address] Sep, Essential hypertension I10 [facility] [address] [facility] [id number] [address] [place] [address] Aug, Secondary infection of skin L08.89 and Essential hypertension I10 [facility] [address] [facility] [id number] [address] [place] [address] Aug, Essential hypertension I10 a nd Encounter for immunization Z23 [place] [address] [address] [place] [id number] [place] [address] Aug, [facility] [address] [facility] [id number] [address] [place] [address] Jul, [facility] [address] [place] [address] Jun, Essential hypertension I10 a nd Irritable bowel syndrome with diarrhea K58.0 IMMUNIZATIONS Vaccine Route Administration Date Status DEXAMETHASONE 4MG/ML (PER 1 MG) IM Intramuscular March 08, 2018 Administered DEPO MEDROL 40 MG/ML IM Intramuscular March 08, 2018 Administer ed SOCIAL HISTORY Never Assessed REASON FOR VISIT Sore throat Pt c/o sinus infection which may be almost over, wants a sinus cult ure to take to Dr. Peña on the [place] [facility] PLAN OF CARE Activity Details Follow Up prn Reason: VITAL SIGNS Height 71 in 2018-03-08 Weight 191.4 lbs 2018-03-08 Temperature 97.7 degrees Fahrenheit 2018-03-08 Heart Rate 72 bpm 2018-03-08 Respiratory Rate 18 2018-03-08 BMI 26.69 kg/m2 2018-03-08 Blood pressure systolic 136 mmHg 2018-03-08 Blood pressure diastolic 70 mmHg 2018-03-08 MEDICATIONS Medication Instructions Dosage Frequency Start Date End Date Duration S tatus Bystolic 10MG TAKE ONE TABLET BY MOUTH ONCE DAILY Active Singulair 10 MG Orally Once a day 1 tablet in the evening 24h Feb, 30 day(s) Active Hydrochlorothiazide 25MG Orally Once a day 1 tablet 24h 90 Active Hyoscyamine Sulfate ER 0.375MG Orally every 12 hrs 1 tablet 12h 90 Active Flonase Allergy Relief 50 MCG/ACT Nasally Once a day 1 spray in each nostril 24h Active Omeprazole 20 mg Orally Once a day 1 capsule 24h Active Cozaar 100MG Orally Once a day 1 tablet 24h 90 Active Tessalon Perles 100 mg Orally Three times a day 1 capsule as needed 8h Jan, Not-Taking Sudafed 12 Hour 120 MG Orally every 12 hrs 1 tablet as needed 12h Jan, Not-Taking Claritin 10 MG Orally Once a day 1 tablet 24h Not-Taking ProAir HFA 108 (90 Base) MCG/ACT Inhalation every 6 hrs 2 puffs as needed 6h Oct, 10 days Active Naproxen 500MG Orally every 12 hrs 1 tablet as needed 12h 90 Active Hyoscyamine Sulfate 0.125 MG Sublingual every 4 hrs 1 tablet under the tongue and allow to dissolve before meals as needed 4h Active RESULTS No Results PROCEDURES Procedure Date Ordered Result Body Site DEPO MEDROL 40 MG/ML March 08, 2018 DEXAMETHASONE 4MG/ML (PER 1 MG) March 08, 2018 THER/PROPH/DIAG INJ, SC/IM March 08, 2018 INSTRUCTIONS MEDICATIONS ADMINISTERED No Known Medications MEDICAL (GENERAL) HISTORY Type Description Date Medical History Essential hypertension Medical History Irritable bowel syndrome with diarrhea Medical History Unspecified osteoarthritis, unspecified site Medical History Chronic sinusitis, unspecified Surgical History tonsillectomy Surgical History umbilical hernia repair Surgical History achilles tendon repair left foot Hospitalization History surgeries only
--- OUTSIDE RECORDS SUMMARY | 2020-04-20 10:50 | XMS REPORT ---
Author Author Dangelo DOWLING Organization [facility] Address [address] [place] [address] Care Team Providers Care Security And Compliance Project Manager Name Role Phone DOWLINGJOHN MesaELE Unavailable PROBLEMS Type Condition ICD9-CM Code [id number] Code Onset Dates Condition S tatus SNOMED Code Problem Family history of prostate cancer Z80.42 Active 057307967 Problem Family history of heart disease Z82.49 Active 222382144 Problem Essential hypertension I10 Active 03259185 Problem Irritable bowel syndrome with diarrhea K58.0 Active 281314024 Problem Gastroesophageal reflux disease with esophagitis K 21.0 Active 302472827 Problem Arthritis M19.90 Active 2586026 ALLERGIES Substance Reaction Event Type Date Status Sulfamethoxazole-Trimethoprim Unknown Drug Allergy Oct, 6 Active SOCIAL HISTORY No smoking Hx information available PLAN OF CARE Activity Details Follow Up prn Reason: VITAL SIGNS Height 71 in 2016-10-27 Weight 193.8 lbs 2016-10-27 Temperature 98.1 degrees Fahrenheit 2016-10-27 Heart Rate 68 bpm 2016-10-27 Respiratory Rate 18 2016-10-27 BMI 27.03 kg/m2 2016-10-27 Blood pressure systolic 148 mmHg 2016-10-27 Blood pressure diastolic 92 mmHg 2016-10-27 MEDICATIONS Medication Instructions Dosage Frequency Start Date End Date Duration S tatus Cozaar 100 MG Orally Once a day 1 tablet 24h Jun, Active Omeprazole 20 mg Orally Once a day 1 capsule 24h Active Metoprolol Succinate ER 50 MG Orally Once a day 1 tablet 24h Active Hyoscyamine Sulfate CR 0.375 MG Orally every 12 hrs 1 tablet 12h Active Flonase Allergy Relief 50 MCG/ACT Nasally Once a day 1 spray in each nostril 24h Active Azithromycin 250 MG Orally Once a day 2 tablets on the rst day, then 1 tablet daily for 4 days 24h Oct, Oct, 5 day(s) Active Naproxen 500 MG Orally every 12 hrs 1 tablet as needed 12h Active Hydrochlorothiazide 25 MG Orally Once a day 1 tablet 24h Aug, 6 Active Hyoscyamine Sulfate 0.125 MG Sublingual every 4 hrs 1 tablet under the tongue and allow to dissolve before meals as needed 4h Active RESULTS No Results PROCEDURES Procedure Date Ordered Related Diagnosis Body Site Office Visit, Est Pt., Level 3 Oct 27, 2016 IMMUNIZATIONS No Known Immunizations
--- OUTSIDE RECORDS SUMMARY | 2020-04-20 10:50 | XMS REPORT ---
Author Author Dangelo CA Organization [facility] Address [address] [place] [address] Care Team Providers Care Clerical And Office Support Workers Name Role Phone RAISSA CA Unavailable PROBLEMS Type Condition ICD9-CM Code [id number] Code Onset Dates Condition S tatus SNOMED Code Problem Essential hypertension I10 Active 35326309 Problem Irritable bowel syndrome with diarrhea K58.0 Active 981417624 Problem Arthritis M19.90 Active 0193127 Problem Seasonal allergies J30.2 Active 4 43745319 Problem At risk for heart disease Z91.89 Acti ve 474775559 Problem Gastroesophageal reflux disease with esophagitis K 21.0 Active 958943415 Problem Family history of prostate cancer Z80.42 Active 852447666 Problem Family history of heart disease Z82.49 Active 126385816 Problem 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 Active 184720717 ALLERGIES No Information ENCOUNTERS Encounter Location Date Diagnosis [facility] [address] [facility] [id number] [address] [place] [id number] 02 Feb, 2019 Essential hypertension I10 ; Gastroesophageal reflux disease with esophagitis K21.0 and Irritable bowel syndrome with diarrhea K58.0 [facility] [address] [facility] [id number] [address] [place] [address] Jan, [facility] [address] [facility] [id number] [address] [place] [address] Dec, [facility] [address] [facility] [id number] [address] [place] [address] Oct, Acute nasopharyngitis J00 an d Wheezes R06.2 [facility] [address] [facility] [id number] [address] [place] [address] Oct, [facility] [address] [facility] [id number] [address] [place] [address] Oct, Effusion of left elbow M25.4 [address] [place] [address] [address] Sep, Olecranon bursitis of left e lbow M70.22 [place] [address] [address] Aug, Encounter for immunization Z 23 [place] [address] [address] 16 May, 2018 At risk for heart disease Z9 1.[address] [address] May, Essential hypertension I10 ; Family history of heart disease Z82.49 ; 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 ; Irritable bowel syndrome with diarrhea K58.0 and Seasonal allergies J30.2 [facility] [place] [address] [address] Feb, Seasonal allergic rhinitis, unspecified trigger J30.2 [facility] [address] [address] Jan, Viral upper respiratory trac t infection J06.9 [place] [address] [address] Oct, Essential hypertension I10 a nd Gastroesophageal reflux disease with esophagitis K21.0 [facility] [place] [address] [address] Oct, Bronchitis J40 and Subacute maxillary sinusitis J01.00 [facility] [address] [address] Sep, Acute upper respiratory infe ction, unspecified J06.9 ; Encounter for immunization Z23 and Other viral agents as the cause of diseases classified elsewhere B97.89 [facility] [address] [address] Jul, Chronic seasonal allergic rh initis due to other allergen J30.2 [facility] [address] [place] [id number] [address] [place] [address] Jun, Essential hypertension I10 [facility] [address] [place] [id number] [address] [place] [address] May, Acute upper respiratory infe ction, unspecified J06.9 [place] [address] [address] [place] [id number] [address] [place] [address] May, Essential hypertension I10 ; Arthritis M19.90 ; Family history of prostate cancer Z80.42 and Family history of heart disease Z82.49 [place] [address] [address] Dec, Essential hypertension I10 a nd Gastroesophageal reflux disease with esophagitis K21.0 [facility] [place] [address] [address] Oct, Other specified bacterial ag ents as the cause of diseases classified elsewhere B96.89 and Acute sinusitis, unspecified J01.90 [place] [address] [address] [place] [id number] [address] [place] [address] Oct, [place] [address] [address] Oct, [place] [id number] [place] [address] Sep, Essential hypertension I10 [facility] [address] [place] [id number] [address] [place] [address] Aug, Secondary infection of skin L08.89 and Essential hypertension I10 [place] [address] [address] [place] [id number] [address] [place] [address] Aug, Essential hypertension I10 a nd Encounter for immunization Z23 [place] [address] [address] [place] [id number] [address] [place] [address] Aug, [place] [address] [address] [place] [id number] [address] [place] [address] Jul, [facility] [address] [facility] [id number] [address] [place] [address] Jun, Essential hypertension I10 a nd Irritable bowel syndrome with diarrhea K58.0 IMMUNIZATIONS No Known Immunizations SOCIAL HISTORY Never Assessed REASON FOR VISIT refill request PLAN OF CARE VITAL SIGNS MEDICATIONS No Known Medications RESULTS No Results PROCEDURES No Known procedures INSTRUCTIONS MEDICATIONS ADMINISTERED No Known Medications MEDICAL (GENERAL) HISTORY Type Description Date Medical History Essential hypertension Medical History Irritable bowel syndrome with diarrhea Medical History Unspecified osteoarthritis, unspecified site Medical History Chronic sinusitis, unspecified Surgical History tonsillectomy Surgical History umbilical hernia repair Surgical History achilles tendon repair left foot Surgical History bursectomy left elbow Hospitalization History surgeries only
--- OUTSIDE RECORDS SUMMARY | 2020-04-20 10:50 | XMS REPORT ---
Author Author Dangelo CA Organization [facility] [place] Address [address] [place] [address] Care Team Providers Care Crystallography Teacher Name Role Phone RAISSA CA Unavailable PROBLEMS Type Condition ICD9-CM Code QPV14-KT Code Onset Dates Condition S tatus SNOMED Code Problem Essential hypertension I10 Active 30866900 Problem Arthritis M19.90 Active 3457564 Problem Irritable bowel syndrome with diarrhea K58.0 Active 732893286 Problem At risk for heart disease Z91.89 Acti ve 141079455 Problem Seasonal allergies J30.2 Active 4 67233879 Problem Family history of prostate cancer Z80.42 Active 665875494 Problem Gastroesophageal reflux disease with esophagitis K 21.0 Active 213333639 Problem 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 Active 041451350 Problem Family history of heart disease Z82.49 Active 936472317 ALLERGIES No Information ENCOUNTERS Encounter Location Date Diagnosis [facility] [place] [address] [address] 25 Aug, 2018 Encounter for immunization Z 23 [facility] [place] [address] [address] 16 May, 2018 At risk for heart disease Z9 1.89 [facility] [place] [address] [place] [id number] [address] [place] [address] 13 May, 2018 Essential hypertension I10 ; Family history of heart disease Z82.49 ; 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 ; Irritable bowel syndrome with diarrhea K58.0 and Seasonal allergies J30.2 [facility] [address] [place] [id number] [address] [place] [address] Feb, Seasonal allergic rhinitis, unspecified trigger J30.2 [facility] [address] [place] [id number] [address] [place] [address] Jan, Viral upper respiratory trac t infection J06.9 [place] [address] [address] Oct, Essential hypertension I10 a nd Gastroesophageal reflux disease with esophagitis K21.0 [facility] [place] [facility] [place] [address] [address] 04 Oct, 2017 Bronchitis J40 and Subacute maxillary sinusitis J01.00 [facility] IN [place] [address] [address] Sep, Acute upper respiratory infe ction, unspecified J06.9 ; Encounter for immunization Z23 and Other viral agents as the cause of diseases classified elsewhere B97.89 [facility] IN [place] [address] [address] 05 Jul, 2017 Chronic seasonal allergic rh initis due to other allergen J30.2 [place] [address] [address] Jun, Essential hypertension I10 [facility] [place] [address] [address] May, Acute upper respiratory infe ction, unspecified J06.9 [place] [address] [address] May, Essential hypertension I10 ; Arthritis M19.90 ; Family history of prostate cancer Z80.42 and Family history of heart disease Z82.49 [place] [address] [address] Dec, Essential hypertension I10 a nd Gastroesophageal reflux disease with esophagitis K21.0 [facility] [place] [address] [address] Oct, Other specified bacterial ag ents as the cause of diseases classified elsewhere B96.89 and Acute sinusitis, unspecified J01.90 [place] [address] [address] Oct, [facility] [place] [address] [facility] [id number] [address] [place] [address] Oct, [facility] [place] [address] [facility] [id number] [address] [place] [address] Sep, Essential hypertension I10 [facility] [place] [facility] [address] [facility] [id number] [address] [place] [address] Aug, Secondary infection of skin L08.89 and Essential hypertension I10 [facility] [place] [address] [id number] [address] [place] [address] Aug, Essential hypertension I10 a nd Encounter for immunization Z23 [facility] [place] [address] [facility] [id number] [address] [place] [address] Aug, [facility] [place] [address] [facility] [id number] [address] [place] [address] Jul, [facility] [place] [address] [facility] [id number] [address] [place] [phone] Jun, Essential hypertension I10 a nd Irritable bowel syndrome with diarrhea K58.0 IMMUNIZATIONS Vaccine Route Administration Date Status FLULAVAL QUAD 0.5ML (6 MO & UP) 2017 IM Intramuscular Sep 02 Administered SOCIAL HISTORY Never Assessed REASON FOR VISIT Flu shot --KIRSTY Hernández PLAN OF CARE VITAL SIGNS MEDICATIONS Unknown Medications RESULTS No Results PROCEDURES Procedure Date Ordered Result Body Site FLULAVAL QUAD 0.5ML (6 MO AND UP) 2017Sep 02, 2018 SINGLE IMMUNIZATION ADMIN Sep 02, 2018 INSTRUCTIONS MEDICATIONS ADMINISTERED No Known Medications MEDICAL (GENERAL) HISTORY Type Description Date Medical History Essential hypertension Medical History Irritable bowel syndrome with diarrhea Medical History Unspecified osteoarthritis, unspecified site Medical History Chronic sinusitis, unspecified Surgical History tonsillectomy Surgical History umbilical hernia repair Surgical History achilles tendon repair left foot Hospitalization History surgeries only
--- OUTSIDE RECORDS SUMMARY | 2020-04-20 10:51 | XMS REPORT ---
Author Author Dangelo CA Organization [facility] Address [address] [place] [address] Care Team Providers Care Assistant Professor Of Spanish Name Role Phone RAISSA CA Unavailable PROBLEMS Type Condition ICD9-CM Code TTO12-TI Code Onset Dates Condition S tatus SNOMED Code Problem Family history of heart disease Z82.49 Active 437968886 Problem Family history of prostate cancer Z80.42 Active 587262352 Problem Irritable bowel syndrome with diarrhea K58.0 Active 053941693 Problem Essential hypertension I10 Active 20225540 Problem Gastroesophageal reflux disease with esophagitis K 21.0 Active 432850429 Problem Arthritis M19.90 Active 9562936 ALLERGIES Substance Reaction Event Type Date Status Sulfamethoxazole-Trimethoprim Unknown Drug Allergy Oct, 201 7 Active ENCOUNTERS Encounter Location Date Diagnosis [facility] [address] [place] [id number] [address] [place] [phone] Feb, Seasonal allergic rhinitis, unspecified trigger J30.2 [facility] [address] [place] [id number] [address] [place] [address] Jan, Viral upper respiratory trac t infection J06.9 [facility] [address] [place] [id number] [address] [place] [address] 12 Oct, 2017 Essential hypertension I10 a nd Gastroesophageal reflux disease with esophagitis K21.0 [facility] [address] [place] [id number] [address] [place] [address] 04 Oct, 2017 Bronchitis J40 and Subacute maxillary sinusitis J01.00 [facility] [address] [place] [id number] [address] [place] [address] 24 Sep, 2017 Acute upper respiratory infe ction, unspecified J06.9 ; Encounter for immunization Z23 and Other viral agents as the cause of diseases classified elsewhere B97.89 [facility] [address] [facility] [id number] [address] [place] [address] 05 Jul, 2017 Chronic seasonal allergic rh initis due to other allergen J30.2 [place] [address] [address] [place] [id number] [address] [place] [phone] Jun, Essential hypertension I10 [facility] [address] [place] [id number] [address] [place] [phone] May, Acute upper respiratory infe ction, unspecified J06.9 [place] [address] [address] [place] [id number] [address] [place] [address] May, Essential hypertension I10 ; Arthritis M19.90 ; Family history of prostate cancer Z80.42 and Family history of heart disease Z82.49 [place] [address] [address] [place] [id number] [place] [address] 10 Dec, 2016 Essential hypertension I10 a nd Gastroesophageal reflux disease with esophagitis K21.0 [facility] IN [place] [id number] [place] [id number] [place] [phone] Oct, Other specified bacterial ag ents as the cause of diseases classified elsewhere B96.89 and Acute sinusitis, unspecified J01.90 [place] [address] [address] [place] [id number] [address] [place] [phone] Oct, [place] [address] [address] Oct, [place] [address] [address] [place] [id number] [address] [place] [phone] Sep, Essential hypertension I10 [facility] [place] [address] [facility] [id number] [address] [place] [address] Aug, Secondary infection of skin L08.89 and Essential hypertension I10 [place] [address] [address] [place] [id number] [address] [place] [phone] Aug, Essential hypertension I10 a nd Encounter for immunization Z23 [place] [address] [address] [place] [id number] [address] [place] [phone] Aug, [facility] [address] [facility] [id number] [address] [place] [address] Jul, [facility] [address] [facility] [id number] [address] [place] [phone] Jun, Essential hypertension I10 a nd Irritable bowel syndrome with diarrhea K58.0 IMMUNIZATIONS No Known Immunizations SOCIAL HISTORY Never Assessed REASON FOR VISIT Blood Pressure----DBennettRN PLAN OF CARE Activity Details Follow Up 4 Months Reason: VITAL SIGNS Height 71 in 2017-10-20 Weight 199 lbs 2017-10-20 Temperature 98.7 degrees Fahrenheit 2017-10-20 Heart Rate 70 bpm 2017-10-20 Respiratory Rate 20 2017-10-20 BMI 27.75 kg/m2 2017-10-20 Blood pressure systolic 160 mmHg 2017-10-20 Blood pressure diastolic 90 mmHg 2017-10-20 MEDICATIONS Medication Instructions Dosage Frequency Start Date End Date Duration S tatus Hyoscyamine Sulfate 0.125 MG Sublingual every 4 hrs 1 tablet under the tongue and allow to dissolve before meals as needed 4h Active Hyoscyamine Sulfate ER 0.375 MG Orally every 12 hrs 1 tablet 12h Active Naproxen 500MG Orally every 12 hrs 1 tablet as needed 12h 30 Active Claritin 10 MG Orally Once a day 1 tablet 24h Not-Taking Omeprazole 20 mg Orally Once a day 1 capsule 24h Active Cozaar 100MG Orally Once a day 1 tablet 24h Active Hydrochlorothiazide 25MG Orally Once a day 1 tablet 24h 90 Active Bystolic 10MG TAKE ONE TABLET BY MOUTH ONCE DAILY Active Flonase Allergy Relief 50 MCG/ACT Nasally Once a day 1 spray in each nostril 24h Active ProAir HFA 108 (90 Base) MCG/ACT Inhalation every 6 hrs 2 puffs as needed 6h Oct, 10 days Active Augmentin 875-125 MG Orally every 12 hrs 1 tablet 12h 04 Oct, 017 Oct, 14 days Active RESULTS No Results PROCEDURES No [...]
--- OUTSIDE RECORDS SUMMARY | 2020-04-20 10:51 | XMS REPORT ---
Author Author Dangelo Kersn Organization [facility] Address [address] [place] [address] Care Team Providers Care Interactive Multimedia Designer Name Role Phone GERBER Kerns Unavailable PROBLEMS Type Condition ICD9-CM Code TSF51-NH Code Onset Dates Condition S tatus SNOMED Code Problem Family history of heart disease Z82.49 Active 386660621 Problem Family history of prostate cancer Z80.42 Active 569222748 Problem Irritable bowel syndrome with diarrhea K58.0 Active 582996616 Problem Essential hypertension I10 Active 47107953 Problem Gastroesophageal reflux disease with esophagitis K 21.0 Active 922635574 Problem Arthritis M19.90 Active 4307368 ALLERGIES Substance Reaction Event Type Date Status Sulfamethoxazole-Trimethoprim Unknown Drug Allergy Jul, 201 7 Active ENCOUNTERS Encounter Location Date Diagnosis [facility] [address] [facility] [id number] [address] [place] [address] Jan, Viral upper respiratory trac t infection J06.9 [facility] [place] [address] [facility] [id number] [address] [place] [address] Oct, Essential hypertension I10 a nd Gastroesophageal reflux disease with esophagitis K21.0 [facility] [address] [facility] [id number] [address] [place] [address] Oct, Bronchitis J40 and Subacute maxillary sinusitis J01.00 [facility] [address] [facility] [id number] [address] [place] [address] Sep, Acute upper respiratory infe ction, unspecified J06.9 ; Encounter for immunization Z23 and Other viral agents as the cause of diseases classified elsewhere B97.89 [facility] [address] [facility] [id number] [address] [place] [address] Jul, Chronic seasonal allergic rh initis due to other allergen J30.2 [facility] [place] [address] [facility] [id number] [address] [place] [address] 10 Jun, 2017 Essential hypertension I10 [facility] [address] [facility] [id number] [address] [place] [address] May, Acute upper respiratory infe ction, unspecified J06.9 [place] [address] [place] [id number] [address] [place] [address] May, Essential hypertension I10 ; Arthritis M19.90 ; Family history of prostate cancer Z80.42 and Family history of heart disease Z82.49 [place] [address] [place] [id number] [address] [place] [address] Dec, Essential hypertension I10 a nd Gastroesophageal reflux disease with esophagitis K21.[address] [facility] [place] [address] [address] [place] [id number] [address] [place] [address] Oct, Other specified bacterial ag ents as the cause of diseases classified elsewhere B96.89 and Acute sinusitis, unspecified J01.90 [place] [address] [place] [id number] [address] [place] [address] Oct, [place] [address] [place] [id number] [address] [place] [address] Oct, [place] [address] [place] [id number] [address] [place] [address] Sep, Essential hypertension I10 [facility] [address] [facility] [id number] [address] [place] [address] Aug, Secondary infection of skin L08.89 and Essential hypertension I10 [place] [address] [place] [id number] [address] [place] [address] Aug, Essential hypertension I10 a nd Encounter for immunization Z23 [place] [address] [place] [id number] [address] [place] [address] Aug, [place] [address] [place] [id number] [address] [place] [address] Jul, [facility] [place] [address] [facility] [id number] [address] [place] [address] Jun, Essential hypertension I10 a nd Irritable bowel syndrome with diarrhea K58.0 IMMUNIZATIONS Vaccine Route Administration Date Status DEXAMETHASONE 4MG/ML (PER 1 MG) IM Intramuscular Jul 14, 2017 Administered DEPO MEDROL 40 MG/ML IM Intramuscular Jul 14, 2017 Administer ed SOCIAL HISTORY Never Assessed REASON FOR VISIT dry cough for about 3 weeks went away and came back over the weekend Bernice PLAN OF CARE Activity Details Follow Up prn Reason: VITAL SIGNS Height 71 in 2017-07-14 Weight 197.2 lbs 2017-07-14 Temperature 97.6 degrees Fahrenheit 2017-07-14 Heart Rate 64 bpm 2017-07-14 Respiratory Rate 20 2017-07-14 BMI 27.50 kg/m2 2017-07-14 Blood pressure systolic 122 mmHg 2017-07-14 Blood pressure diastolic 82 mmHg 2017-07-14 MEDICATIONS Medication Instructions Dosage Frequency Start Date End Date Duration S tatus Hydrochlorothiazide 25 MG Orally Once a day [...] 1 spray in each nostril 24h Active Bystolic 10 MG Orally Once a day 1 tablet 24h 30 day s Active Naproxen 500 MG Orally every 12 hrs 1 tablet as needed 12h Active Cozaar 100 MG Orally Once a day 1 tablet 24h Jun, Active Omeprazole 20 mg Orally Once a day 1 capsule 24h Active RESULTS No Results PROCEDURES Procedure Date Ordered Result Body Site DEPO MEDROL 40 MG/ML Jul 14, 2017 DEXAMETHASONE 4MG/ML (PER 1 MG) Jul 14, 2017 THER/PROPH/DIAG INJ, SC/IM Jul 14, 2017 INSTRUCTIONS MEDICATIONS ADMINISTERED No Known Medications MEDICAL (GENERAL) HISTORY Type Description Date Medical History Essential hypertension Medical History Irritable bowel syndrome with diarrhea Medical History Unspecified osteoarthritis, unspecified site Medical History Chronic sinusitis, unspecified Surgical History tonsillectomy Surgical History umbilical hernia repair Surgical History achilles tendon repair left foot Hospitalization History surgeries only
--- OUTSIDE RECORDS SUMMARY | 2020-04-20 10:51 | XMS REPORT | Continuity of Care Document ---
Author Organization Unknown Address Unknown Phone Unavailable Allergies Active Description Code Type Severity Reaction Onset Reported/Identified Relationship to Patient Clinical Status Yes Sulfa (Sulfonamide Antibiotics) [id number] 0491 Drug Allergy Unknown N/A 015 Medications There is no data. Problems Date Dx Coded Attending Type Code Diagnosis Diagnosed By 02/23/2015 ASHLYN JIMENEZ, BRENDAN Bailon Ot 845.09 02/23/2015 ASHLYN JIMENEZ, BRENDAN Bailon Ot 959.7 02/23/2015 ASHLYN JIMENEZ, BRENDAN Bailon Ot E000.8 02/23/2015 ASHLYN JIMENEZ, BRENDAN Bailon Ot E849.0 02/23/2015 ASHLYN JIMENEZ, BRENDAN T Ot E885.9 Procedures There is no data. Results Test Result Range Lipid Panel - 08/15/16 09:33 Cholesterol, Total 170 mg/dL 100-199 Triglycerides 64 mg/dL 0-149 HDL Cholesterol 64 mg/dL >39 VLDL Cholesterol Richar 13 mg/dL 5-40 LDL Cholesterol Calc 93 mg/dL 0-99 Comp. Metabolic Panel (14) - 05/21/17 10 :11 Glucose, Serum 104 mg/dL 65-99 BUN 10 mg/dL 8-27 Creatinine, Serum 0.80 mg/dL 0.76-1.27 eGFR If NonAfricn Am 96 mL/min/1.73 >59 eGFR If Africn Am 111 mL/min/1.73 >5 9 BUN/Creatinine Ratio 13 10-24 Sodium, Serum 140 mmol/L 134-144 Potassium, Serum 4.3 mmol/L 3.5-5.2 Chloride, Serum 97 mmol/L 96-106 Carbon Dioxide, Total 24 mmol/L 18-29 Calcium, Serum 9.5 mg/dL 8.6-10.2 Protein, Total, Serum 6.5 g/dL 6.0-8.5 Albumin, Serum 4.3 g/dL 3.6-4.8 Globulin, Total 2.2 g/dL 1.5-4.5 A/G Ratio 2.0 1.2-2.2 Bilirubin, Total 0.5 mg/dL 0.0-1.2 Alkaline Phosphatase, S 73 IU/L 39-117 AST (SGOT) 25 IU/L 0-40 ALT (SGPT) 20 IU/L 0-44 Lipid Panel - 05/21/17 10:11 Cholesterol, Total 169 mg/dL 100-199 Triglycerides 68 mg/dL 0-149 HDL Cholesterol 67 mg/dL >39 VLDL Cholesterol Richar 14 mg/dL 5-40 LDL Cholesterol Calc 88 mg/dL 0-99 Prostate-Specific Ag, Serum - 05/21/17 1 0:11 Prostate Specific Ag, Serum 1.1 ng/mL 0. 0-4.0 LIPID PANEL - 05/21/18 09:43 CHOLESTEROL, TOTAL 172 mg/dL <200 HDL CHOLESTEROL 66 mg/dL >40 TRIGLYCERIDES 70 mg/dL <150 LDL-CHOLESTEROL 90 mg/dL (calc) NRG CHOL/HDLC RATIO 2.6 (calc) <5.0 NON HDL CHOLESTEROL 106 mg/dL (calc) <13 0 CMP - 05/21/18 09:43 GLUCOSE 100 mg/dL 65-99 UREA NITROGEN (BUN) 12 mg/dL 7-25 CREATININE 0.76 mg/dL 0.70-1.25 eGFR NON-AFR. IVORIAN 97 mL/min/1.73m2 > OR = 60 eGFR 113 mL/min/1.73m2 > OR = 60 BUN/CREATININE RATIO NOT APPLICABLE (calc) 6-22 SODIUM 137 mmol/L 135-146 POTASSIUM 4.4 mmol/L 3.5-5.3 CHLORIDE 100 mmol/L 98-110 CARBON DIOXIDE 31 mmol/L 20-31 CALCIUM 9.8 mg/dL 8.6-10.3 PROTEIN, TOTAL 7.0 g/dL 6.1-8.1 ALBUMIN 4.6 g/dL 3.6-5.1 GLOBULIN 2.4 g/dL (calc) 1.9-3.7 ALBUMIN/GLOBULIN RATIO 1.9 (calc) 1.0-2. 5 BILIRUBIN, TOTAL 0.6 mg/dL 0.2-1.2 ALKALINE PHOSPHATASE 75 U/L 40-115 AST 23 U/L 10-35 ALT 24 U/L 9-46 CULTURE, AEROBIC - 10/13/18 09:15 CULTURE, AEROBIC BACTERIA SEE NOTE NRG CMP - 08/25/19 10:56 GLUCOSE 94 mg/dL 65-99 UREA NITROGEN (BUN) 9 mg/dL 7-25 CREATININE 0.75 mg/dL 0.70-1.25 eGFR NON-AFR. IVORIAN 97 mL/min/1.73m2 > OR = 60 eGFR 112 mL/min/1.73m2 > OR = 60 BUN/CREATININE RATIO NOT APPLICABLE (calc) 6-22 SODIUM 137 mmol/L 135-146 POTASSIUM 4.4 mmol/L 3.5-5.3 CHLORIDE 97 mmol/L 98-110 CARBON DIOXIDE 30 mmol/L 20-32 CALCIUM 9.4 mg/dL 8.6-10.3 PROTEIN, TOTAL 6.5 g/dL 6.1-8.1 ALBUMIN 4.5 g/dL 3.6-5.1 GLOBULIN 2.0 g/dL (calc) 1.9-3.7 ALBUMIN/GLOBULIN RATIO 2.3 (calc) 1.0-2. 5 BILIRUBIN, TOTAL 0.7 mg/dL 0.2-1.2 ALKALINE PHOSPHATASE 79 U/L 40-115 AST 24 U/L 10-35 ALT 25 U/L 9-46 STOOL (O T P) - 03/19/20 08:23 OVA AND PARASITES, CONC AND PERM SMEAR SEE NOTE [facility] CULTURE, STOOL - 03/19/20 08:23 SALMONELLA AND SHIGELLA, CULTURE SEE NOTE [facility] STOOL (C-DIFF) - 03/19/20 08:23 CLOSTRIDIUM DIFFICILE TOXIN/GDH W/REFL TO PCR SEE NOTE [facility] CBC - 03/27/20 09:12 WHITE BLOOD CELL COUNT 6.5 Thousand/uL 3 .8-10.8 RED BLOOD CELL COUNT 4.40 Million/uL 4.2 0-5.80 HEMOGLOBIN 13.6 g/dL 13.2-17.1 HEMATOCRIT 40.5 % 38.5-50.0 MCV 92.0 fL 80.0-100.0 MCH 30.9 pg 27.0-33.0 MCHC 33.6 g/dL 32.0-36.0 RDW 12.3 % 11.0-15.0 PLATELET COUNT 265 Thousand/uL 140-400 MPV 9.4 fL 7.5-12.5 ABSOLUTE NEUTROPHILS 4420 cells/uL 1500- 7800 ABSOLUTE LYMPHOCYTES 1443 cells/uL 850-3 900 ABSOLUTE MONOCYTES 468 cells/uL 200-950 ABSOLUTE EOSINOPHILS 137 cells/uL 15-500 ABSOLUTE BASOPHILS 33 cells/uL 0-200 NEUTROPHILS 68 % NRG LYMPHOCYTES 22.2 % NRG MONOCYTES 7.2 % NRG EOSINOPHILS 2.1 % NRG BASOPHILS 0.5 % NRG Coronavirus SARS-CoV-2 SO 2018 - 0 08:20 Coronavirus Ab [Units/volume] in Serum Negative Negative Encounters ACCT No. Visit Date/Time Discharge Status Pt. Type Provider Facility Loc./Unit Complaint [id number] 03/18/2020 16:00:00 03/18/2020 23:59: 59 CLS Outpatient LANNY JIMENEZ, RAISSA DONG [facility] [id number] 03/27/2020 08:40:00 Document Registration [id number] 03/19/2020 08:20:00 Document Registration [id number] 08/25/2019 10:20:00 Document Registration [id number] 10/13/2018 08:20:00 Document Registration [id number] 05/21/2018 09:00:00 Document Registration [id number] 05/22/2017 10:09:00 Document Registration [id number] 08/16/2016 08:07:00 Document Registration [id number] 10/20/2017 09:00:00 10/20/2017 23:59: 59 CLS [facility] [id number] 04/16/2020 05:50:00 020 15:08:00 DIS Outpatient SALEEM HONG MD [facility] PREOP COLONOSCOPY [id number] 02/23/2015 21:34:00 015 23:46:00 DIS Emergency ASHLYN JIMENEZ, BRENDAN Bailon [facility] ER [id number] 04/20/2020 10:30:00 P EN Preadmit SALEEM HONG MD [facility] ENDO SCREENING
--- NOTE | 2020-04-20 15:18 | Anesthesia-General Post-Op ---
MAC Patient Condition Mental Status/LOC: Same as Preop Cardiovascular: Satisfactory Nausea/Vomiting: Absent Respiratory: Satisfactory Pain: Controlled Complications: Absent Post Op Complications Complications None Follow Up Care/Instructions Patient Instructions None needed. Anesthesiology Discharge Order Discharge Order Patient is doing well, no complaints, stable vital signs, no apparent adverse anesthesia problems. No complications reported per nursing. SALMA REDE CRNA Apr 20, 2020 15:18
--- NOTE | 2020-04-21 01:01 | OPERATIVE REPORT ---
DATE OF SERVICE: 04/20/2020 COLONOSCOPY SUMMARY INDICATION FOR THE PROCEDURE: Screening colonoscopy. DESCRIPTION OF PROCEDURE: The patient was placed in the left lateral decubitus position. Prior to undergoing colonoscopy, digital rectal evaluation was performed. Anal sphincter tone was normal and the perianal reflexes intact. The prostate was normal in size, anodular, nontender to digital inspection. There are no abnormalities noted on digital inspection of anal canal or distal rectal vault. The colonoscope was then inserted into the rectum and under direct visualization advanced to cecum. The cecum was identified by identification of the ileocecal valve and cecal strap. Photographic documentation was obtained. A careful inspection was made as the colonoscope was withdrawn. Quality of prep was fair. The procedure was done under Diprivan anesthesia. There was no evidence for internal or external hemorrhoids. The rectum was unremarkable in appearance. The patient was having increase in usual diarrhea that he had attributed to irritable bowel syndrome. I did obtain a biopsy from the rectum for submission for microscopic colitis. No inflammatory changes noted throughout the colon including distal terminal ileum. The sigmoid colon, descending colon, and splenic flexure were unremarkable. There was a diminutive 2-3 mm sessile polyp noted in the distal transverse colon. It was biopsied and ablated and submitted for histopathology. It was biopsied and ablated. There was no subsequent blood loss. The remainder of the transverse colon, splenic flexure, ascending colon, cecum and distal 10 cm of terminal ileum were unremarkable. ASSESSMENT AND PLAN: One diminutive polyp was removed from the rectosigmoid junction via hot forceps. We would advocate consideration for repeat screening colonoscopy in 10 years provided there continues to be no family history for colon cancer. Biopsy is pending from the rectum for evaluation of microscopic colitis. The patient has had a flare up of typical irritable bowel symptoms and does have some risk factors for small bowel bacterial overgrowth. The symptoms are persistent despite fiber peppermint oil and hyoscyamine that the patient has been using on a regular basis. Advised considering a trial of Xifaxan 500 mg b.i.d. for 2 weeks provided there is coverage. If this is not effective, would advocate a trial of Viberzi 100 mg b.i.d. considering failure first line agents for IBS-D. In answering the patient's questions about IBS and the above therapies with expectations another 20 minutes face to face care time spent over and above screening colonoscopy issues. I thank you for the referral of this pleasant gentleman. Job ID: [id number] DocumentID: [id number] Dictated Date: 04/20/2020 15:37:38 [employer] Inspector Date: 04/21/2020 01:00:27 Dictated By: SALEEM HONG MD MTDD
== END 2020-04-20 11:36 | disposition home or self-care (01) ==
LOC: ENDO 09:29
PROVIDERS: ATTEND Internal Medicine
DX: Z12.11 Encounter for screening for malignant neoplasm of colon (principal); K58.0 Irritable bowel syndrome with diarrhea; K63.5 Polyp of colon; I10 Essential (primary) hypertension; J30.9 Allergic rhinitis, unspecified; K21.9 Gastro-esophageal reflux disease without esophagitis; M06.9 Rheumatoid arthritis, unspecified; M19.90 Unspecified osteoarthritis, unspecified site; E78.5 Hyperlipidemia, unspecified; Z79.899 Other long term (current) drug therapy; Z88.2 Allergy status to sulfonamides; Z80.1 Family history of malignant neoplasm of trachea, bronchus and lung